=== PATIENT | male | born 1950 | race Caucasian/White ===

== ENCOUNTER 2016-12-15 11:18 | Emergency (ER) | payer MEDICARE, OTHER ==
[2016-12-15] MEDS ORDERED: LIDOCAINE 1% INJ-PF (10 MG/ML) 30 ML SDV INJ ONE (11:35)
--- NOTE | 2016-12-15 11:37 | ER Document Report ---
HPI - HPI Patient complains to provider of: cut left hand on nanda Onset: Just prior to arrival Onset/Duration: Sudden Pain Level: 3 Context: 66-year-old nondiabetic male whose tetanus is current cut his hyperthenar aspect of his right hand on a nanda in the shed when he was looking for long more parts. No bleeding at this time. Associated Symptoms: None, Slow to respond Relieved by: Denies Similar symptoms previously: No Recently seen / treated by doctor: No - ROS ROS below otherwise negative: Yes Systems Reviewed and Negative: Yes All other systems reviewed and negative - DERM Skin Color: Normal Past Medical History - General Information source: Patient - Social History Smoking Status: Unknown if Ever Smoked Frequency of alcohol use: None Drug Abuse: None Lives with: Spouse/Significant other Family History: Reviewed & Not Pertinent Patient has suicidal ideation: No Patient has homicidal ideation: No - Past Medical History Cardiac Medical History: Reports: Hx Coronary Artery Disease, Hx Peripheral Vascular Disease Renal/ Medical History: Denies: Hx Peritoneal Dialysis Past Surgical History: Reports: Hx Cardiac Catheterization, Hx Vascular Surgery - Eft leg removal of embolism Vertical Provider Document - CONSTITUTIONAL Agree With Documented VS: Yes Exam Limitations: No Limitations - INFECTION CONTROL TRAVEL OUTSIDE OF THE [place] IN LAST 30 DAYS: No - HEENT HEENT: Normocephalic - NECK Neck: Supple - RESPIRATORY O2 Sat by Pulse Oximetry: 93 - MUSCULOSKELETAL/EXTREMETIES Musculoskeletal/Extremeties: MAEW, FROM, Tender - 4 cm linear full-thickness cut hypo-thenar aspect of the left hand - NEURO Level of Consciousness: Awake, Alert, Appropriate Motor/Sensory: No Motor Deficit, No Sensory Deficit - DERM Integumentary: Laceration - see above Course - Vital Signs Vital signs: Temp Pulse Resp BP Pulse Ox 97.7 F 86 18 98/55 L 93 12/15/16 11:26 12/15/16 11:26 12/15/16 11:26 12/15/16 11:26 12/15/16 11:26 Procedures - Laceration/Wound Repair Left Hand Time completed: 12:49 Wound length (cm): 3.5 Wound's Depth, Shape: Linear, Other - into subq fat Laceration pre-procedure: Sterile PPE donned, Other - surgiscrub Anesthetic type: 1% Lidocaine Volume Anesthetic (mLs): 8 Wound explored: Clean Irrigated w/ Saline (mLs): 100 Wound Repaired With: Sutures Suture Size/Type: 4:0, Prolene Number of Sutures: 4 - vertical mattress Post-procedure wound care: Sterile dressing applied - bacitracin Complications: Yes Discharge - Discharge Clinical Impression: hand cut repair Condition: Good Disposition: HOME, SELF-CARE Instructions: Antibiotic Ointment Protection ([facility]), Laceration Care ([facility]) Additional Instructions: keep wound dry bacitracin 2 days to er any signs of infection sutures out in 12 days Please complete the patient satisfaction survey if you get one, and return it.. If you do not receive a survey, then you can go to the [facility] website, [email or web address] and place your comments about your very good care. Thank you very much. It was a pleasure being your medical provider today. Prescriptions: Oxycodone HCl/Acetaminophen [Percocet 5-325 mg Tablet] 1 - 2 tab PO ASDIR PRN # 15 tablet PRN Reason:
[2016-12-15 13:24] VITALS: BP 90/68
== END 2016-12-15 13:24 | disposition home or self-care (01) ==
LOC: ER 11:18
PROC: 0HQGXZZ Repair Left Hand Skin, External Approach (ICD-10-PCS; principal; 2016-12-15)
DX: S61.412A Laceration without foreign body of left hand, initial encounter (principal); W45.8XXA Other foreign body or object entering through skin, initial encounter; Y93.89 Activity, other specified; Y92.89 Other specified places as the place of occurrence of the external cause; I25.10 Atherosclerotic heart disease of native coronary artery without angina pectoris
CPT/HCPCS: 99282; 12002; J3490

== ENCOUNTER 2016-12-31 11:11 | Inpatient (IN) | payer MEDICARE, OTHER ==
[2016-12-31] MEDS ORDERED: ETOMIDATE INJ/PF 20 MG/10 ML SDV IV ONE ×2 (11:26→11:39)
[2016-12-31] MEDS ORDERED: SUCCINYLCHOLINE CHLORIDE INJ 200 MG/10 ML VIAL IV ONE (11:39)
--- NOTE | 2016-12-31 11:41 | ER Document Report ---
ED General - General Stated Complaint: ALTERED MENTAL STATUS Time Seen by Provider: 12/31/16 11:16 Mode of Arrival: Ambulatory Information source: Patient Notes: 66-year-old male who had recent femoral surgery presents with family with concerns of drowsiness weakness. Patient found to be febrile hypotensive by EMS TRAVEL OUTSIDE OF THE [place] IN LAST 30 DAYS: No - HPI Onset: Just prior to arrival Onset/Duration: Sudden Quality of pain: No pain Severity: Moderate Pain Level: Denies Associated symptoms: Fever, Weakness Exacerbated by: Denies Relieved by: Denies Similar symptoms previously: No Recently seen / treated by doctor: Yes - Related Data Allergies/Adverse Reactions: iodine Allergy (Verified 12/15/16 11:25) Past Medical History - Social History Smoking Status: Never Smoker Cigarette use (# per day): No Chew tobacco use (# tins/day): No Smoking Education Provided: No Family History: Reviewed & Not Pertinent - Past Medical History Cardiac Medical History: Reports: Hx Coronary Artery Disease, Hx Peripheral Vascular Disease Renal/ Medical History: Denies: Hx Peritoneal Dialysis Past Surgical History: Reports: Hx Cardiac Catheterization, Hx Vascular Surgery - Eft leg removal of embolism Review of Systems - Review of Systems Notes: PHYSICAL EXAMINATION: GENERAL: Very ill-appearing male pale diaphoretic hypoxic hypotensive HEAD: Atraumatic, normocephalic. EYES: Pupils equal round and reactive to light, extraocular movements intact, sclera anicteric, conjunctiva are normal. ENT: Nares patent, oropharynx clear without exudates. Moist mucous membranes. NECK: Normal range of motion, supple without lymphadenopathy LUNGS: Coarse wheezing all throughout HEART: Regular rate and rhythm without murmurs ABDOMEN: Soft, nontender, nondistended abdomen. No guarding, no rebound. No masses appreciated. Musculoskeletal: Normal range of motion, no pitting or edema. No cyanosis. NEUROLOGICAL: GCS 7 PSYCH: Flat SKIN: Femoral incision noted Physical Exam - Vital signs Vitals: Pulse Ox 97 12/31/16 12:41 Course - Re-evaluation Re-evalutation: 12/31/16 11:40 Patient on arrival is febrile hypotensive and hypoxic, O2 sats 60% on room air 12/31/16 11:54 Concern for pneumonia versus pulmonary emboli, CTA pending patient was immediately intubated Due to respiratory failure 12/31/16 12:24 Patient is noted to be hyperkalemic acute renal failure, I am unable to perform a CTA due to kidney function 12/31/16 13:24 Nuclear medicine ventilation/perfusion scan has been ordered. 12/31/16 13:25 Will be admitted to the ICU - Vital Signs Vital signs: Temp Pulse Resp BP Pulse Ox 97 12/31/16 12:41 - Laboratory Result Diagrams: 12/31/16 11:35 12/31/16 11:35 Laboratory results interpreted by me: 12/31/16 12/31/16 12/31/16 11:35 11:35 11:35 WBC 17.0 H RBC 3.60 L Hgb 10.7 L Hct 33.7 L MCHC 31.6 L RDW 16.7 H Seg Neutrophils % 83.2 H Lymphocytes % 8.0 L Absolute Neutrophils 14.1 H PT 24.8 H VBG pH VBG pCO2 Sodium 135.2 L Potassium 6.1 H* BUN 27 H Creatinine 2.99 H Est GFR ( Amer) 25 L Est GFR (Non-Af Amer) 21 L 12/31/16 11:35 WBC RBC Hgb Hct MCHC RDW Seg Neutrophils % Lymphocytes % Absolute Neutrophils PT VBG pH 7.17 L* VBG pCO2 75.4 H* Sodium Potassium BUN Creatinine Est GFR ( Amer) Est GFR (Non-Af Amer) - Diagnostic Test Radiology reviewed: Image reviewed, Reports reviewed - Right middle upper lobe pneumonia - EKG Interpretation by Me EKG shows normal: Sinus rhythm, [place], Intervals, QRS Complexes Procedures - Intubation Orotracheal Time of Intubation: 11:30 Airway evaluation: Normal anatomy Mallampati Classification: Class 4 Medications: Etomidate, Succinylcholine Intubation method: Orotracheal Blade type: Tarun Blade size: 4 ETT size: 8.0 ETT secured at: Teeth ETT secured at (cm): 22 Breath Sounds after Intubation: Equal End tidal CO2 confirmed: Yes Post Intubation Xray: Yes Intubation Complications: No complications Critical Care Note - Critical Care Note Total time excluding time spent on procedures (mins): 33 Comments: minutes of critical care time spent in direct contact evaluating and reevaluating the patient, treating symptoms, reviewing labs and studies and speaking with family and consultants excluding any procedures Discharge - Discharge Clinical Impression: Respiratory failure requiring intubation, Hospital-acquired pneumonia Hypotension Qualifiers: Hypotension type: unspecified hypotension type Qualified Code(s): I95.9 - Hypotension, unspecified Fever Qualifiers: Fever type: due to other condition Qualified Code(s): R50.81 - Fever presenting with conditions classified elsewhere Sepsis Qualifiers: Sepsis type: sepsis due to unspecified organism Qualified Code(s): A41.9 - Sepsis, unspecified organism Condition: Critical Disposition: ADMITTED INPATIENT Admitting Provider: Hospitalist Unit Admitted: ICU
[2016-12-31] MEDS ORDERED: PROPOFOL 100 ML IV ONE (11:43)
[2016-12-31] MEDS: PROPOFOL 100 ML IV PRN ×3 (11:44→20:38)
[2016-12-31 11:46] LABS: ABSOLUTE BASOPHILS # (AUTO) 0.1 10^3/uL (0.0-0.2); ABSOLUTE EOSINOPHILS # (AUTO) 0.2 10^3/uL (0.0-0.6); ABSOLUTE LYMPHOCYTES (AUTO) 1.4 10^3/uL (0.5-4.7); ABSOLUTE MONOCYTES (AUTO) 1.3 10^3/uL (0.1-1.4); ABSOLUTE NEUT (AUTO) 14.1 10^3/uL (1.7-8.2); BASOPHILS % (AUTO) 0.3 % (0-2); EOSINOPHILS % (AUTO) 1.1 % (0-6); HEMATOCRIT 33.7 % (37.9-51.0); HEMOGLOBIN 10.7 g/dL (13.5-17.0); HGB HCT DIFFERENCE -1.6; MEAN CORPUSCULAR HEMOGLOBIN 29.6 pg (27.0-33.4); MEAN CORPUSCULAR HGB CONC 31.6 g/dL (32.0-36.0); MEAN CORPUSCULAR VOLUME 94 fl (80-97); MONOCYTES % (AUTO) 7.4 % (3-13); RED CELL DISTRIBUTION WIDTH 16.7 % (11.5-14.0); SEGMENTED NEUTROPHILS % (AUTO) 83.2 % (42-78); VENOUS BLOOD BASE EXCESS -2.8 mmol/L
[2016-12-31 11:54] LABS: PROTHROMBIN TIME 24.8 SEC (11.4-15.4)
[2016-12-31] MEDS ORDERED: LEVOFLOXACIN 750 MG/D5W RTU 150 ML IV ONE (11:55)
[2016-12-31] MEDS: NORMAL SALINE 1000 ML 1,000 ML IV PRN ×2 (12:00→13:09)
[2016-12-31 12:03] LABS: VENOUS BLOOD PCO2 75.4 mmHg (35-63); VENOUS BLOOD PH 7.17 (7.30-7.42)
[2016-12-31 12:08] LABS: ALANINE AMINOTRANSFERASE 32 U/L (21-72); ALBUMIN 3.8 g/dL (3.5-5.0); ALKALINE PHOSPHATASE 96 U/L (38-126); ANION GAP 10 (5-19); ASPARTATE AMINO TRANSFERASE 18 U/L (17-59); BILIRUBIN,DIRECT 0.4 mg/dL (0.0-0.4); BILIRUBIN,TOTAL 0.6 mg/dL (0.2-1.3); BLOOD UREA NITROGEN 27 mg/dL (7-20); CALCIUM 9.2 mg/dL (8.4-10.2); CARBON DIOXIDE 25 mmol/L (22-30); CHLORIDE 100 mmol/L (98-107); CREATININE RESULT 2.99 mg/dL (0.52-1.25); GLUCOSE 105 mg/dL (75-110); SODIUM 135.2 mmol/L (137-145); TOTAL PROTEIN 6.7 g/dL (6.3-8.2)
[2016-12-31 12:17] LABS: POTASSIUM 6.1 mmol/L (3.6-5.0)
[2016-12-31] MEDS ORDERED: SODIUM BICARBONATE 8.4% INJ 50 MEQ/50 ML DISP.SYRIN IV ONE (12:21)
[2016-12-31] MEDS ORDERED: ALBUTEROL SULFATE 0.083% NEB 2.5 MG/3 ML AMPUL NEB ONE (12:21)
[2016-12-31] MEDS ORDERED: INSULIN REG, HUMAN 100 UNIT/ML 3 ML VIAL (PYX) IV ONE (12:21)
[2016-12-31] MEDS ORDERED: CALCIUM GLUCONATE 1000 MG/10 ML INJ IV ONE (12:21)
[2016-12-31] MEDS ORDERED: DEXTROSE 50%-WATER 25 GM/50 ML DISP.SYRIN IV ONE (12:21)
[2016-12-31 12:25] LABS: APPEARANCE,URINE SLIGHTLY-CLOUDY; BILIRUBIN,URINE NEGATIVE (NEGATIVE); GLUCOSE, URINE NEGATIVE (NEGATIVE); KETONES,URINE NEGATIVE (NEGATIVE); LEUKOCYTE ESTERASE,URINE NEGATIVE (NEGATIVE); NITRITE,URINE NEGATIVE (NEGATIVE); PROTEIN,URINE NEGATIVE (NEGATIVE); URINE SPECIFIC GRAVITY 1.012; UROBILINOGEN,URINE NEGATIVE mg/dL (<2.0)
[2016-12-31] MEDS ORDERED: NORMAL SALINE 1000 ML 1,000 ML IV ONE (12:32)
--- NOTE | 2016-12-31 12:51 | RADIOLOGY REPORT (SQ) ---
EXAM DESCRIPTION: CHEST SINGLE VIEW COMPLETED DATE/TIME: 12/31/2016 12:41 pm REASON FOR STUDY: post intubation, fever hypoxemia COMPARISON: 04/10/2011 EXAM PARAMETERS: NUMBER OF VIEWS: One view. TECHNIQUE: Single frontal radiographic view of the chest acquired. RADIATION DOSE: NA LIMITATIONS: None. FINDINGS: LUNGS AND PLEURA: There is the appearance of a questionable infiltrate in the right mid brandon ng. There is no pleural effusion. There is no mass. MEDIASTINUM AND HILAR STRUCTURES: No masses. Contour normal. HEART AND VASCULAR STRUCTURES: Heart normal in size. Normal vasculature. BONES: No acute findings. HARDWARE: An endotracheal tube has its tip 3 cm above the ondina. An NG tube extends to the stomach. OTHER: No other significant finding. IMPRESSION: Possible right upper lobe/middle lobe pneumonia. TECHNICAL DOCUMENTATION: JOB ID: [id number]
[2016-12-31] MEDS ORDERED: VANCOMYCIN HCL INJ 1000 MG VIAL IV ONE (13:19)
[2016-12-31] MEDS ORDERED: CEFEPIME 1 GM/D5W RTU 50 ML IV ONE (13:19)
--- NOTE | 2016-12-31 13:33 | EKG REPORT ---
SEVERITY:- NORMAL ECG - SINUS RHYTHM : Confirmed by: Marcellus Murguia MD 31-Dec-2016 13:32:57
[2016-12-31] MEDS ORDERED: MIDAZOLAM HCL 100 ML IV ONE (14:24)
[2016-12-31] MEDS ORDERED: SUCCINYLCHOLINE CHLORIDE INJ 200 MG/10 ML VIAL ONE (14:36)
--- NOTE | 2016-12-31 14:43 | PDOC H&P ---
History of Present Illness History of Present Illness: BELA CALHOUN is a 66 year old male who presents to the emergency department with altered mental status. His reports a recent history of a left femoral arterial procedure which I believe was done about 2 weeks ago. Was also seen in this emergency department several days ago for a laceration to the left hand. At this morning the patient was found with altered mental status by his . Patient was brought to the emergency department where he was found to be febrile at 100.2, hypotensive at 70/40, and hypoxemic with a 69% O2 saturation. He has required intubation and mechanical ventilation. He received 3 L of IV fluids, effectively raising his blood pressure to 110/62. Chest x-ray shows right middle lobe and right upper lobe infiltrate consistent with pneumonia versus PE. Blood count is 17,000. BUN 27, creatinine 2.99, potassium 6.1. Arterial blood gases showed a pH of 7.17 and a PCO2 of 75. I am seeing the patient in the emergency department in trauma room #1, on a gurney on his way to a VQ scan. He is sedated on propofol. No family members were in attendance. Past Medical History Cardiac Medical History: Reports: Coronary Artery Disease, Peripheral Vascular Disease Pulmonary Medical History: Reports: Other - non-smoker Past Surgical History Past Surgical History: Reports: Cardiac Catheterization, Vascular Surgery - Left leg removal of embolism Social History Smoking Status: Never Smoker Family History Family History: Reviewed & Not Pertinent Parental Family History Reviewed: No - Unable to be obtained due to sedation and intubation. Children Family History Reviewed: No Sibling(s) Family History Reviewed.: No Medication/Allergy Home Medications: Oxycodone HCl/Acetaminophen [Percocet 5-325 mg Tablet] 1 - 2 tab PO ASDIR PRN # 15 tablet 12/15/16 Allergies/Adverse Reactions: iodine Allergy (Verified 12/15/16 11:25) Review of Systems ROS unobtainable: Due to endotracheal tube Physical Exam Vital Signs: Temp Pulse Resp BP Pulse Ox 97 12/31/16 12:41 Intake & Output 12/30/16 12/31/16 01/01/17 06:59 06:59 06:59 Weight 77.2 kg General appearance: PRESENT: other - sedated and on a ventilator Head exam: PRESENT: atraumatic, normocephalic Eye exam: PRESENT: other - pupils small and reactive to light Ear exam: PRESENT: normal external ear exam. ABSENT: bleeding, drainage Mouth exam: PRESENT: dry mucosa, neck supple Neck exam: ABSENT: carotid bruit, JVD, lymphadenopathy, tracheal deviation Respiratory exam: PRESENT: clear to auscultation [place], symmetrical. ABSENT: rales, rhonchi, wheezes Cardiovascular exam: PRESENT: RRR Pulses: PRESENT: other - no palpable distal pulses. Slow capillary refill. Toes all warm, pink. Vascular exam: ABSENT: normal capillary refill GI/Abdominal exam: PRESENT: soft. ABSENT: ascites, distended Rectal exam: PRESENT: deferred Gentrourinary exam: ABSENT: lesions, scrotal swelling Extremities exam: PRESENT: other - No edema. Vascular surgical scars LLE. Neurological exam: PRESENT: other - sedated on propofol.. ABSENT: alert, awake Skin exam: PRESENT: other - Healing laceration left hand. Healed vasc surgical scars LLE. Results Laboratory Results: 12/31/16 11:35 12/31/16 11:35 12/31/16 12/31/16 12/31/16 11:35 11:35 11:35 WBC 17.0 H RBC 3.60 L Hgb 10.7 L Hct 33.7 L MCV 94 MCH 29.6 MCHC 31.6 L RDW 16.7 H Plt Count 342 Seg Neutrophils % 83.2 H Lymphocytes % 8.0 L Monocytes % 7.4 Eosinophils % 1.1 Basophils % 0.3 Absolute Neutrophils 14.1 H Absolute Lymphocytes 1.4 Absolute Monocytes 1.3 Absolute Eosinophils 0.2 Absolute Basophils 0.1 VBG pH VBG pCO2 VBG HCO3 VBG Base Excess Sodium 135.2 L Potassium 6.1 H* Chloride 100 Carbon Dioxide 25 Anion Gap 10 BUN 27 H Creatinine 2.99 H Est GFR ( Amer) 25 L Est GFR (Non-Af Amer) 21 L Glucose 105 Lactic Acid 1.3 Calcium 9.2 Total Bilirubin 0.6 AST 18 ALT 32 Alkaline Phosphatase 96 Total Protein 6.7 Albumin 3.8 Urine Color Urine Appearance Urine pH Ur Specific [place] Urine Protein Urine Glucose (UA) Urine Ketones Urine Blood Urine Nitrite Ur Leukocyte Esterase Urine WBC (Auto) Urine RBC (Auto) 12/31/16 12/31/16 11:35 12:00 WBC RBC Hgb Hct MCV MCH MCHC RDW Plt Count Seg Neutrophils % Lymphocytes % Monocytes % Eosinophils % Basophils % Absolute Neutrophils Absolute Lymphocytes Absolute Monocytes Absolute Eosinophils Absolute Basophils VBG pH 7.17 L* VBG pCO2 75.4 H* VBG HCO3 27.0 VBG Base Excess -2.8 Sodium Potassium Chloride Carbon Dioxide Anion Gap BUN Creatinine Est GFR ( Amer) Est GFR (Non-Af Amer) Glucose Lactic Acid Calcium Total Bilirubin AST ALT Alkaline Phosphatase Total Protein Albumin Urine Color YELLOW Urine Appearance SLIGHTLY-CLOUDY Urine pH 5.0 Ur Specific [place] 1.012 Urine Protein NEGATIVE Urine Glucose (UA) NEGATIVE Urine Ketones NEGATIVE Urine Blood NEGATIVE Urine Nitrite NEGATIVE Ur Leukocyte Esterase NEGATIVE Urine WBC (Auto) 1 Urine RBC (Auto) 0 Impressions: Chest X-Ray 12/31/16 12:23 IMPRESSION: Possible right upper lobe/middle lobe pneumonia. Assessment & Plan - Diagnosis (1) Acute respiratory failure with hypoxia and hypercarbia Is this a current diagnosis for this admission?: YesPlan: The patient was admitted with altered mental status, signs of sepsis with pneumonia, hypotension, leukocytosis, acidosis and elevated PCO2. He has required intubation and mechanical ventilation. Pulmonary medicine is consulted for ventilator management. (2) Hospital-acquired pneumonia Is this a current diagnosis for this admission?: YesPlan: The patient has chest x-ray evidence of right middle lobe and right upper lobe infiltrates suggestive of pneumonia versus embolism. Fever and leukocytosis suggest pneumonia. PA is unable to be done because of acute renal failure. Post scan is in progress. While, he will be started on IV antibiotics, fluids, etc. (3) Sepsis Qualifiers: Sepsis type: sepsis due to unspecified organism Qualified Code(s): A41.9 - Sepsis, unspecified organism Is this a current diagnosis for this admission?: YesPlan: The patient is septic hip based on his presentation with altered mental status, hypotension, fever, and leukocytosis. Blood pressure improved with IV fluids. He has not required vasopressors. (4) ARF (acute renal failure) Qualifiers: Acute renal failure type: unspecified Qualified Code(s): N17.9 - Acute kidney failure, unspecified Is this a current diagnosis for this admission?: YesPlan: The patient has evidence of renal failure with elevated BUN and creatinine, and potassium at 6.1. Will simply monitor this with the IV fluids. Treat the hyperkalemia. Consult nephrology if the need be. (5) Hyperkalemia Is this a current diagnosis for this admission?: Yes (6) PAD (peripheral artery disease) Is this a current diagnosis for this admission?: YesPlan: He is status post a recent left femoral arterial procedure. All surgical scars have healed. There is no palpable distal pulses but the tips of all toes are warm, pink, adequately perfused. (7) CAD (coronary artery disease) Qualifiers: Coronary Disease-Associated Artery/Lesion type: [place] artery [place] vs. transplanted heart: [place] heart Associated angina: angina presence unspecified Qualified Code(s): I25.10 - Atherosclerotic heart disease of [place] coronary artery without angina pectoris Is this a current diagnosis for this admission?: YesPlan: Patient has a known history of coronary artery disease. Presence of angina is unknown. Will treat with aspirin, beta-misha and to statin medication as his clinical condition allows. - Time Time Spent: 50 to 70 Minutes Critical Time spent with patient: 35 or more minutes Medications reviewed and adjusted accordingly: Yes - Inpatient Certification Based on my medical assessment, after consideration of the patient's comorbidities, presenting symptoms, or acuity I expect that the services needed warrant INPATIENT care.: Yes Medical Necessity: Need Close Monitoring Due to Risk of Patient Decompensation, Need For Continuous Telemetry Monitoring, Other - Need for mechanical ventilation - Plan Summary Plan Summary: In summary, this is a 66-year-old man who is about 2 weeks status post a left femoral arterial procedure who is readmitted to the hospital with altered mental status. He has acute hypoxemic and hypercarbic respiratory failure, fever, hypotension, leukocytosis and evidence of acute renal failure. He will be admitted to the ICU for ventilator management, fluids, antibiotics, and all associated consultations, monitoring, diagnostics and therapeutics.
--- NOTE | 2016-12-31 15:09 | RADIOLOGY REPORT (SQ) ---
EXAM DESCRIPTION: NM LUNG VENT/PERF SCAN COMPLETED DATE/TIME: 12/31/2016 2:59 pm REASON FOR STUDY: hx dvt , hypoxemia COMPARISON: None. RADIONUCLIDE AND DOSE: 4.76 millicuries TC-99m MAA Intravenous 32.0 millicuries TC-99m DTPA Inhaled aerosol TECHNIQUE: Eight views of the lungs acquired post ventilation of DTPA aerosol. Eight matching views of the lungs acquired following injection of MAA. LIMITATIONS: None. FINDINGS: VENTILATION: There is some minimal inhomogeneity of the distribution of tracer activity. There is some pooling in the trachea and central bronchi. PERFUSION: There is some minimal inhomogeneity of the distribution of tracer activity which correlate s with the ventilation findings. No ventilation perfusion mismatches are identified. OTHER: No other significant finding. IMPRESSION: Ventilation perfusion lung scan showing no evidence for pulmonary embolic disease. TECHNICAL DOCUMENTATION: JOB ID: [id number] [id number]- All Rights Reserved
[2016-12-31] MEDS: DEXTROSE 5%-NORMAL SALINE 1,000 ML IV PRN ×2 (15:52→23:20)
[2016-12-31] MEDS ORDERED: NOREPINEPHRINE BITARTRATE INJ/PF 4 MG/4 ML SDV IV ONE (16:02)
[2016-12-31] MEDS ORDERED: DEXTROSE 5%-WATER 250 ML with NOREPINEPHRINE BITARTRATE 4 MG IV PRN ×2 (16:07)
[2016-12-31 16:52] LABS: ARTERIAL BLOOD O2 SATURATION 93.6 % (94-98)
[2016-12-31] MEDS: CEFTRIAXONE 1 GM/D5W RTU 1 GM/50 ML RTUPB IV SCH (17:55)
[2016-12-31 19:01] LABS: ARTERIAL BLOOD BASE EXCESS -3.2 mmol/L; ARTERIAL BLOOD O2 SATURATION 91.6 % (94-98)
[2016-12-31] MEDS: OXYCODONE-ACETAMINOPHEN 5-325 MG TABLET PO PRN (20:38)
--- NOTE | 2016-12-31 20:41 | PDOC CONSULTATION ---
Consultation Consult Date: 12/31/16 Attending physician:: YEVGENIY DELANEY Consult reason:: resp failure History of Present Illness Admission Date/PCP: 12/31/16 12:29 History of Present Illness: BELA CALHOUN is a 66 year old male who presents to the emergency department with altered mental status. At this morning the patient was found with altered mental status by his . Patient was brought to the emergency department where he was found to be febrile at 100.2, hypotensive at 70/40, and hypoxemic with a 69% O2 saturation. He has required intubation and mechanical ventilation. He received 3 L of IV fluids, effectively raising his blood pressure to 110/62. Chest x-ray shows right middle lobe and right upper lobe infiltrate consistent with pneumonia versus PE. Blood count is 17,000. BUN 27, creatinine 2.99, potassium 6.1. Arterial blood gases showed a pH of 7.17 .. Patient's family state patient smoked 1-1/2 packs a day for the last 52 years. 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 He admits to exposure to passive smoke as a child as well as an adult he has no pets no recent travel has not reported angina-like chest pain sleeps on 1-2 pillows rare PND no nocturnal cough frequent edema. He states that he does snore he has restless sleep nocturia 2-3 times per night. 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: Yes Medication/Allergy Home Medications: Albuterol Sulfate [Proair Respiclick] 1 puff IH Q4HP PRN 12/31/16 Amlodipine Besylate [Norvasc 5 mg Tablet] 5 mg PO DAILY 12/31/16 Aspirin [Ecotrin 81 mg EC Tablet] 81 mg PO DAILY 12/31/16 Atorvastatin Calcium [Lipitor 40 mg Tablet] 40 mg PO QHS 12/31/16 Clonazepam [Klonopin] 0.5 mg PO BIDP PRN 12/31/16 Esomeprazole Magnesium [Nexium] 40 mg PO DAILY 12/31/16 Fluoxetine HCl [Prozac 20 mg Capsule] 20 mg PO DAILY 12/31/16 Furosemide [Lasix 20 mg Tablet] 20 mg PO DAILY 12/31/16 Gabapentin [Neurontin 300 mg Capsule] 300 mg PO Q12 12/31/16 Lisinopril [Prinivil 40 mg Tablet] 40 mg PO DAILY 12/31/16 Pantoprazole Sodium [Protonix] 40 mg PO DAILY 12/31/16 Rivaroxaban [Xarelto] 20 mg PO QPM 12/31/16 Tramadol HCl [Ultram 50 mg Tablet] 50 mg PO Q6HP PRN 12/31/16 Allergies/Adverse Reactions: iodine Allergy (Verified 12/15/16 11:25) Review of Systems ROS unobtainable: Due to endotracheal tube Physical Exam Vital Signs: Temp Pulse Resp BP Pulse Ox 99.0 F 66 20 100/55 L 96 12/31/16 18:58 12/31/16 20:00 12/31/16 18:58 12/31/16 18:58 12/31/16 18:58 Intake & Output 12/30/16 12/31/16 01/01/17 06:59 06:59 06:59 Intake Total 3500 Output Total 35 Balance 3465 Weight 85 kg General appearance: PRESENT: disheveled, well-developed Head exam: PRESENT: atraumatic, normocephalic Eye exam: PRESENT: conjunctiva pale Mouth exam: PRESENT: dry mucosa, neck supple, other - ET tube in place Neck exam: ABSENT: carotid bruit, JVD, lymphadenopathy, thyromegaly Respiratory exam: PRESENT: crackles, decreased breath sounds, prolonged expiratory phas, rhonchi, symmetrical, unlabored Cardiovascular exam: PRESENT: RRR, +S1, +S2 GI/Abdominal exam: PRESENT: normal bowel sounds, soft. ABSENT: distended, guarding, mass, organolmegaly, rebound, tenderness Rectal exam: PRESENT: deferred Gentrourinary exam: PRESENT: indwelling catheter Musculoskeletal exam: PRESENT: normal inspection Skin exam: PRESENT: dry Results Laboratory Results: 12/31/16 12/31/16 16:30 18:45 Carbonic Acid 1.84 H 1.69 H HCO3/H2CO3 Ratio 13:1 14:1 ABG pH 7.22 L 7.26 L ABG pCO2 61.1 H 56.0 H ABG pO2 82.4 71.2 L ABG HCO3 24.2 24.3 ABG O2 Saturation 93.6 L 91.6 L ABG Base Excess -4.0 -3.2 FiO2 50% 50% Impressions: Chest X-Ray 12/31/16 12:23 IMPRESSION: Possible right upper lobe/middle lobe pneumonia. Lung Scan-VQ NM 12/31/16 12:23 IMPRESSION: Ventilation perfusion lung scan showing no evidence for pulmonary embolic disease. Assessment & Plan - Diagnosis (1) ARF (acute renal failure) Qualifiers: Acute renal failure type: unspecified Qualified Code(s): N17.9 - Acute kidney failure, unspecified Is this a current diagnosis for this admission?: Yes (2) Acute respiratory failure with hypoxia and hypercarbia Is this a current diagnosis for this admission?: Yes (3) PAD (peripheral artery disease) Is this a current diagnosis for this admission?: Yes (4) Respiratory failure requiring intubation Is this a current diagnosis for this admission?: YesPlan: Supportive care (5) Sepsis Qualifiers: Sepsis type: sepsis due to unspecified organism Qualified Code(s): A41.9 - Sepsis, unspecified organism Is this a current diagnosis for this admission?: YesPlan: vasopressor support volume resuscitation and empiric antibiotic therapy - Time Critical Time spent with patient: 35 or more minutes - 55 min
[2016-12-31 20:45] LABS: ARTERIAL BLOOD BASE EXCESS -2.6 mmol/L; ARTERIAL BLOOD O2 SATURATION 94.9 % (94-98)
[2016-12-31] MEDS: FAMOTIDINE INJ/PF 20 MG/2 ML SDV IV SCH (21:02)
[2016-12-31] MEDS: GUAIFENESIN 600 MG TABLET.SA PO SCH (21:03)
[2016-12-31] MEDS: MIDAZOLAM HCL 100 ML IV PRN (23:19)
[2017-01-01] MEDS: PROPOFOL 100 ML IV PRN ×5 (00:49→21:41)
[2017-01-01] MEDS: ACETAMINOPHEN 325 MG TABLET PO PRN ×2 (02:02→14:08)
[2017-01-01 04:15] LABS: ABSOLUTE BASOPHILS # (AUTO) 0.1 10^3/uL (0.0-0.2); ABSOLUTE EOSINOPHILS # (AUTO) 0.5 10^3/uL (0.0-0.6); ABSOLUTE MONOCYTES (AUTO) 1.4 10^3/uL (0.1-1.4); ABSOLUTE NEUT (AUTO) 11.1 10^3/uL (1.7-8.2); BASOPHILS % (AUTO) 0.5 % (0-2); EOSINOPHILS % (AUTO) 3.7 % (0-6); HEMOGLOBIN 9.3 g/dL (13.5-17.0); HGB HCT DIFFERENCE -1.1; LYMPHOCYTES % (AUTO) 7.4 % (13-45); MEAN CORPUSCULAR HEMOGLOBIN 29.4 pg (27.0-33.4); MEAN CORPUSCULAR HGB CONC 32.1 g/dL (32.0-36.0); MEAN CORPUSCULAR VOLUME 92 fl (80-97); RED BLOOD COUNT 3.17 10^6/uL (4.35-5.55); RED CELL DISTRIBUTION WIDTH 16.6 % (11.5-14.0); SEGMENTED NEUTROPHILS % (AUTO) 78.4 % (42-78); WHITE BLOOD COUNT 14.2 10^3/uL (4.0-10.5)
[2017-01-01 04:30] LABS: ARTERIAL BLOOD BASE EXCESS -2.3 mmol/L
[2017-01-01 04:35] LABS: ANION GAP 6 (5-19); BLOOD UREA NITROGEN 19 mg/dL (7-20); CALCIUM 8.8 mg/dL (8.4-10.2); CARBON DIOXIDE 22 mmol/L (22-30); CHLORIDE 108 mmol/L (98-107); CREATININE RESULT 1.14 mg/dL (0.52-1.25); GLUCOSE 111 mg/dL (75-110); TRIGLYCERIDES 118 mg/dL (<150)
[2017-01-01 04:56] LABS: POTASSIUM 4.9 mmol/L (3.6-5.0)
[2017-01-01] MEDS: MIDAZOLAM HCL 100 ML IV PRN ×3 (05:15→17:48)
--- NOTE | 2017-01-01 06:57 | RADIOLOGY REPORT (SQ) ---
EXAM DESCRIPTION: CHEST SINGLE VIEW COMPLETED DATE/TIME: 01/01/2017 6:03 am REASON FOR STUDY: Mechanical Ventilation COMPARISON: 12/31/2016. EXAM PARAMETERS: NUMBER OF VIEWS: One view. TECHNIQUE: Single frontal radiographic view of the chest acquired. RADIATION DOSE: NA LIMITATIONS: None. FINDINGS: LUNGS AND PLEURA: Small airspace patchiness of the lateral left mid lung field and mild in terstitial prominence. MEDIASTINUM AND HILAR STRUCTURES: No masses. Contour normal. HEART AND VASCULAR STRUCTURES: Heart normal in size. Normal vasculature. BONES: No acute findings. HARDWARE: Likely adequate endotracheal and nasogastric tubes partially imaged. OTHER: No other significant finding. IMPRESSION: Stable. TECHNICAL DOCUMENTATION: JOB ID: [id number]
[2017-01-01] MEDS: ENOXAPARIN SODIUM INJ 30 MG/0.3 ML DISP.SYRIN SUBCUT SCH (08:12)
[2017-01-01] MEDS: DEXTROSE 5%-NORMAL SALINE 1,000 ML IV PRN ×2 (08:45→16:53)
[2017-01-01] MEDS: GUAIFENESIN 600 MG TABLET.SA PO SCH (10:45)
[2017-01-01] MEDS: FAMOTIDINE INJ/PF 20 MG/2 ML SDV IV SCH ×2 (10:47→21:41)
--- NOTE | 2017-01-01 15:30 | PDOC PROGRESS REPORT ---
Subjective Progress Note for:: 01/01/17 Subjective:: BELA CALHOUN is a 66 year old male who presented on 12/31/2016 to the emergency department with altered mental status. His reports a recent history of a left femoral arterial procedure which was done 2-4 weeks ago. The patient was also seen in this emergency department several days ago for a laceration to the left hand. Patient was brought to the emergency department where he was found to be febrile at 100.2, hypotensive at 70/40, and hypoxemic with a 69% O2 saturation. He required intubation and mechanical ventilation. He received 3 L of IV fluids, effectively raising his blood pressure to 110/62. Chest x-ray shows right middle lobe and right upper lobe infiltrate consistent with pneumonia versus PE. Subsequenst VQ scan was negative for embolus. Blood count was 17,000. BUN 27, creatinine 2.99, potassium 6.1. Arterial blood gases showed a pH of 7.17 and a PCO2 of 75. I am seeing the patient in the ICU where he remains sedated with propofol and on a ventilator. He is on a vent weaning trial. Physical Exam Vital Signs: Temp Pulse Resp BP Pulse Ox 101.7 F H 85 17 125/54 L 97 01/01/17 12:00 01/01/17 14:00 01/01/17 14:00 01/01/17 14:00 01/01/17 14:00 Intake & Output 12/31/16 01/01/17 01/02/17 06:59 06:59 06:59 Intake Total 5417 Output Total 835 375 Balance 4582 -375 Weight 83.4 kg Additional comments: General appearance: PRESENT: other - sedated and on a ventilator Head exam: PRESENT: atraumatic, normocephalic Eye exam: PRESENT: other - pupils small and reactive to light Ear exam: PRESENT: normal external ear exam. ABSENT: bleeding, drainage Mouth exam: PRESENT: dry mucosa, neck supple Neck exam: ABSENT: carotid bruit, JVD, lymphadenopathy, tracheal deviation Respiratory exam: PRESENT: coarse breath sounds [place], symmetrical. ABSENT: rales , rhonchi, wheezes Cardiovascular exam: PRESENT: RRR Pulses: PRESENT: other - no palpable distal pulses. Slow capillary refill. Toes all warm, pink. Vascular exam: ABSENT: normal capillary refill GI/Abdominal exam: PRESENT: soft. ABSENT: ascites, distended Rectal exam: PRESENT: deferred Gentrourinary exam: ABSENT: lesions, scrotal swelling Extremities exam: PRESENT: other - No edema. Vascular surgical scars LLE. Neurological exam: PRESENT: other - sedated on propofol.. ABSENT: alert, awake Skin exam: PRESENT: other - Healing laceration left hand. Healed vasc surgical scars LLE. Results Laboratory Results: 01/01/17 03:35 01/01/17 03:35 12/31/16 12/31/16 12/31/16 16:30 18:45 20:30 WBC RBC Hgb Hct MCV MCH MCHC RDW Plt Count Seg Neutrophils % Lymphocytes % Monocytes % Eosinophils % Basophils % Absolute Neutrophils Absolute Lymphocytes Absolute Monocytes Absolute Eosinophils Absolute Basophils Carbonic Acid 1.84 H 1.69 H 1.17 HCO3/H2CO3 Ratio 13:1 14:1 19:1 ABG pH 7.22 L 7.26 L 7.38 ABG pCO2 61.1 H 56.0 H 38.8 ABG pO2 82.4 71.2 L 75.5 L ABG HCO3 24.2 24.3 22.3 ABG O2 Saturation 93.6 L 91.6 L 94.9 ABG Base Excess -4.0 -3.2 -2.6 FiO2 50% 50% 30% Sodium Potassium Chloride Carbon Dioxide Anion Gap BUN Creatinine Est GFR ( Amer) Est GFR (Non-Af Amer) Glucose Calcium Triglycerides 01/01/17 01/01/17 01/01/17 03:35 03:35 04:25 WBC 14.2 H RBC 3.17 L Hgb 9.3 L Hct 29.0 L MCV 92 MCH 29.4 MCHC 32.1 RDW 16.6 H Plt Count 218 Seg Neutrophils % 78.4 H Lymphocytes % 7.4 L Monocytes % 10.0 Eosinophils % 3.7 Basophils % 0.5 Absolute Neutrophils 11.1 H Absolute Lymphocytes 1.0 Absolute Monocytes 1.4 Absolute Eosinophils 0.5 Absolute Basophils 0.1 Carbonic Acid 1.01 L HCO3/H2CO3 Ratio 21:1 ABG pH 7.43 ABG pCO2 33.4 L ABG pO2 71.7 L ABG HCO3 21.5 ABG O2 Saturation 95.0 ABG Base Excess -2.3 FiO2 35% Sodium 136.0 L Potassium 4.9 D Chloride 108 H Carbon Dioxide 22 Anion Gap 6 BUN 19 Creatinine 1.14 Est GFR ( Amer) > 60 Est GFR (Non-Af Amer) > 60 Glucose 111 H Calcium 8.8 Triglycerides 118 Impressions: Lung Scan-VQ NM 12/31/16 12:23 IMPRESSION: Ventilation perfusion lung scan showing no evidence for pulmonary embolic disease. Chest X-Ray 01/01/17 06:00 IMPRESSION: Stable. Assessment & Plan - Diagnosis (1) Acute respiratory failure with hypoxia and hypercarbia Is this a current diagnosis for this admission?: YesPlan: The patient was admitted with altered mental status, signs of sepsis with pneumonia, hypotension, leukocytosis, respiratory acidosis with markedly elevated PCO2. He required intubation and mechanical ventilation. Pulmonary medicine is managing the ventilator. (2) Hospital-acquired pneumonia Is this a current diagnosis for this admission?: YesPlan: The patient has initial chest x-ray evidence of right middle lobe and right upper lobe infiltrates and is being treated for PNA. Fever and leukocytosis were present on admission. Today's CXR mentions infiltrate on the left and not the right. (3) Sepsis Qualifiers: Sepsis type: sepsis due to unspecified organism Qualified Code(s): A41.9 - Sepsis, unspecified organism Is this a current diagnosis for this admission?: YesPlan: The patient is septic based on his presentation with altered mental status, hypotension, fever, and leukocytosis. Blood pressure improved with IV fluids. He required vasopressor yet evening and overnight, but is now off the Levophed. VS are stable and he is making urine. (4) ARF (acute renal failure) Qualifiers: Acute renal failure type: unspecified Qualified Code(s): N17.9 - Acute kidney failure, unspecified Is this a current diagnosis for this admission?: YesPlan: The patient had evidence of acute renal failure on admission with elevated BUN and creatinine, and potassium at 6.1. RFT's are now essentially safia, and K is normal as well. He is making urine. (5) Hyperkalemia Is this a current diagnosis for this admission?: YesPlan: Resolved. (6) PAD (peripheral artery disease) Is this a current diagnosis for this admission?: YesPlan: He is status post a recent left femoral arterial procedure. All surgical scars have healed. There is no palpable distal pulses but the tips of all toes are warm, pink, adequately perfused. (7) CAD (coronary artery disease) Qualifiers: Coronary Disease-Associated Artery/Lesion type: [place] artery [place] vs. transplanted heart: [place] heart Associated angina: angina presence unspecified Qualified Code(s): I25.10 - Atherosclerotic heart disease of [place] coronary artery without angina pectoris Is this a current diagnosis for this admission?: YesPlan: Patient has a known history of coronary artery disease. Presence of angina is unknown. Will treat with aspirin, beta-misha and statin medications as his clinical condition allows. - Time Critical Time spent with patient: 35 or more minutes - Critical care excludes separately billable services and procedures.
[2017-01-01] MEDS: CEFTRIAXONE 1 GM/D5W RTU 1 GM/50 ML RTUPB IV SCH (18:02)
[2017-01-01] MEDS: GUAIFENESIN SYRP 200 MG/10 ML UDC NG SCH (18:03)
[2017-01-02] MEDS: DEXTROSE 5%-NORMAL SALINE 1,000 ML IV PRN ×3 (02:33→22:24)
[2017-01-02] MEDS: PROPOFOL 100 ML IV PRN ×4 (02:34→22:24)
[2017-01-02 04:47] LABS: ABSOLUTE BASOPHILS # (AUTO) 0.1 10^3/uL (0.0-0.2); ABSOLUTE EOSINOPHILS # (AUTO) 0.5 10^3/uL (0.0-0.6); ABSOLUTE LYMPHOCYTES (AUTO) 1.1 10^3/uL (0.5-4.7); ABSOLUTE MONOCYTES (AUTO) 1.3 10^3/uL (0.1-1.4); ABSOLUTE NEUT (AUTO) 9.6 10^3/uL (1.7-8.2); BASOPHILS % (AUTO) 0.7 % (0-2); EOSINOPHILS % (AUTO) 3.8 % (0-6); HEMATOCRIT 25.9 % (37.9-51.0); HEMOGLOBIN 8.6 g/dL (13.5-17.0); HGB HCT DIFFERENCE -0.1; LYMPHOCYTES % (AUTO) 8.7 % (13-45); MEAN CORPUSCULAR HEMOGLOBIN 30.3 pg (27.0-33.4); MEAN CORPUSCULAR HGB CONC 33.2 g/dL (32.0-36.0); MEAN CORPUSCULAR VOLUME 91 fl (80-97); MONOCYTES % (AUTO) 10.1 % (3-13); RED BLOOD COUNT 2.83 10^6/uL (4.35-5.55); RED CELL DISTRIBUTION WIDTH 16.2 % (11.5-14.0); SEGMENTED NEUTROPHILS % (AUTO) 76.7 % (42-78); WHITE BLOOD COUNT 12.6 10^3/uL (4.0-10.5)
[2017-01-02 04:56] LABS: ARTERIAL BLOOD BASE EXCESS -3.8 mmol/L; ARTERIAL BLOOD O2 SATURATION 95.5 % (94-98)
[2017-01-02 05:02] LABS: ANION GAP 6 (5-19); BLOOD UREA NITROGEN 11 mg/dL (7-20); CALCIUM 8.8 mg/dL (8.4-10.2); CARBON DIOXIDE 23 mmol/L (22-30); CHLORIDE 105 mmol/L (98-107); GLUCOSE 106 mg/dL (75-110); MAGNESIUM 1.4 mg/dL (1.6-2.3); PHOSPHORUS 2.9 mg/dL (2.5-4.5); POTASSIUM 4.2 mmol/L (3.6-5.0); SODIUM 134.4 mmol/L (137-145)
--- NOTE | 2017-01-02 07:34 | RADIOLOGY REPORT (SQ) ---
EXAM DESCRIPTION: CHEST SINGLE VIEW COMPLETED DATE/TIME: 01/02/2017 7:24 am REASON FOR STUDY: Mechanical Ventilation COMPARISON: 01/01/2017. EXAM PARAMETERS: NUMBER OF VIEWS: One view. TECHNIQUE: Single frontal radiographic view of the chest acquired. RADIATION DOSE: NA LIMITATIONS: None. FINDINGS: LUNGS AND PLEURA: New, small -moderate patchy airspace opacity of the left lower hemithora x. New small to moderate left basilar opacity -effusion. MEDIASTINUM AND HILAR STRUCTURES: No masses. Contour normal. HEART AND VASCULAR STRUCTURES: Heart normal in size. Normal vasculature. BONES: Chronic deformity of posterior left upper hemithoracic ribs. HARDWARE: Adequate appearing endotracheal tube. Likely adequate nasogastric tube. OTHER: No other significant finding. IMPRESSION: New/worsened moderate left lower lobar opacity -effusion. TECHNICAL DOCUMENTATION: JOB ID: [id number]
[2017-01-02] MEDS: ENOXAPARIN SODIUM INJ 30 MG/0.3 ML DISP.SYRIN SUBCUT SCH (07:45)
[2017-01-02] MEDS: MAGNESIUM SULFATE/D5W 100 ML IV SCH ×3 (08:58→12:09)
[2017-01-02] MEDS ORDERED: LEVOFLOXACIN 750 MG/D5W RTU 750 MG/150 ML RTUPB IV SCH (10:00)
[2017-01-02] MEDS: GUAIFENESIN SYRP 200 MG/10 ML UDC NG SCH ×2 (10:21→17:24)
[2017-01-02] MEDS: FAMOTIDINE INJ/PF 20 MG/2 ML SDV IV SCH ×2 (10:21→21:33)
--- NOTE | 2017-01-02 15:17 | PDOC PROGRESS REPORT ---
Subjective Progress Note for:: 01/02/17 Subjective:: BELA CALHOUN is a 66 year old male who presented on 12/31/2016 to the emergency department with altered mental status. His reports a recent history of a left femoral arterial procedure which was done 2-4 weeks ago. The patient was also seen in this emergency department several days ago for a laceration to the left hand. Patient was brought to the emergency department where he was found to be febrile at 100.2, hypotensive at 70/40, and hypoxemic with a 69% O2 saturation. He required intubation and mechanical ventilation. He received 3 L of IV fluids, effectively raising his blood pressure to 110/62. Chest x-ray shows right middle lobe and right upper lobe infiltrate consistent with pneumonia versus PE. Subsequenst VQ scan was negative for embolus. Blood count was 17,000. BUN 27, creatinine 2.99, potassium 6.1. Arterial blood gases showed a pH of 7.17 and a PCO2 of 75. I am seeing the patient in the ICU where he remains sedated, though Versed and propofol are off for a ventilator wean trial. Physical Exam Vital Signs: Temp Pulse Resp BP Pulse Ox 99.9 F 81 20 160/67 H 100 01/01/17 18:21 01/02/17 07:33 01/02/17 14:00 01/02/17 13:36 01/02/17 14:00 Intake & Output 01/01/17 01/02/17 01/03/17 06:59 06:59 06:59 Intake Total 5417 3515 Output Total 835 2525 1500 Balance 4582 990 -1500 Weight 83.4 kg 84.4 kg Additional comments: General appearance: PRESENT: other - sedated and on a ventilator Head exam: PRESENT: atraumatic, normocephalic Eye exam: PRESENT: other - pupils small and reactive to light Ear exam: PRESENT: normal external ear exam. ABSENT: bleeding, drainage Mouth exam: PRESENT: dry mucosa, neck supple Neck exam: ABSENT: carotid bruit, JVD, lymphadenopathy, tracheal deviation Respiratory exam: PRESENT: coarse breath sounds [place], symmetrical, better air movement. ABSENT: rales, rhonchi, wheezes Cardiovascular exam: PRESENT: RRR Pulses: PRESENT: other - no palpable distal pulses. Slow capillary refill. Toes all warm, pink. Vascular exam: ABSENT: normal capillary refill GI/Abdominal exam: PRESENT: soft. ABSENT: ascites, distended Rectal exam: PRESENT: deferred Gentrourinary exam: ABSENT: lesions, scrotal swelling Extremities exam: PRESENT: other - No edema. Vascular surgical scars LLE. Neurological exam: PRESENT: other - sedated on propofol.. ABSENT: alert, awake Skin exam: PRESENT: other - Healing laceration left hand. Healed vasc surgical scars LLE. Results Laboratory Results: 01/02/17 04:30 01/02/17 04:30 01/02/17 01/02/17 01/02/17 04:30 04:30 04:47 WBC 12.6 H RBC 2.83 L Hgb 8.6 L Hct 25.9 L MCV 91 MCH 30.3 MCHC 33.2 RDW 16.2 H Plt Count 247 Seg Neutrophils % 76.7 Lymphocytes % 8.7 L Monocytes % 10.1 Eosinophils % 3.8 Basophils % 0.7 Absolute Neutrophils 9.6 H Absolute Lymphocytes 1.1 Absolute Monocytes 1.3 Absolute Eosinophils 0.5 Absolute Basophils 0.1 Carbonic Acid 0.97 L HCO3/H2CO3 Ratio 20:1 ABG pH 7.42 ABG pCO2 32.1 L ABG pO2 75.3 L ABG HCO3 20.2 ABG O2 Saturation 95.5 ABG Base Excess -3.8 FiO2 30% Sodium 134.4 L Potassium 4.2 Chloride 105 Carbon Dioxide 23 Anion Gap 6 BUN 11 Creatinine 0.80 Est GFR ( Amer) > 60 Est GFR (Non-Af Amer) > 60 Glucose 106 Calcium 8.8 Phosphorus 2.9 Magnesium 1.4 L 12/31/16 18:55 Tracheal Aspirate Gram Stain - Final Impressions: Lung Scan-VQ NM 12/31/16 12:23 IMPRESSION: Ventilation perfusion lung scan showing no evidence for pulmonary embolic disease. Chest X-Ray 01/02/17 06:00 IMPRESSION: New/worsened moderate left lower lobar opacity -effusion. Assessment & Plan - Diagnosis (1) Acute respiratory failure with hypoxia and hypercarbia Is this a current diagnosis for this admission?: YesPlan: The patient was admitted with altered mental status, signs of sepsis with pneumonia, hypotension, leukocytosis, respiratory acidosis with markedly elevated PCO2. He required intubation and mechanical ventilation. Pulmonary medicine is managing the ventilator. (2) Hospital-acquired pneumonia Is this a current diagnosis for this admission?: YesPlan: The patient has initial chest x-ray evidence of right middle lobe and right upper lobe infiltrates and is being treated for PNA. Fever and leukocytosis were present on admission. Now the CXRs mention infiltrate on the left and not the right. Continue Rocephin and Levaquin. (3) Sepsis Qualifiers: Sepsis type: sepsis due to unspecified organism Qualified Code(s): A41.9 - Sepsis, unspecified organism Is this a current diagnosis for this admission?: YesPlan: The patient was septic based on his presentation with altered mental status, hypotension, fever, and leukocytosis. Blood pressure improved with IV fluids. He required vasopressor only for a few hours. VS are stable. Leukocytosis is improving. He is making urine. (4) ARF (acute renal failure) Qualifiers: Acute renal failure type: unspecified Qualified Code(s): N17.9 - Acute kidney failure, unspecified Is this a current diagnosis for this admission?: YesPlan: Resolved. (5) Hyperkalemia Is this a current diagnosis for this admission?: YesPlan: Resolved. (6) PAD (peripheral artery disease) Is this a current diagnosis for this admission?: YesPlan: He is status post a recent left femoral arterial procedure. All surgical scars have healed. There is no palpable distal pulses but the tips of all toes are warm, pink, adequately perfused. (7) CAD (coronary artery disease) Qualifiers: Coronary Disease-Associated Artery/Lesion type: [place] artery [place] vs. transplanted heart: [place] heart Associated angina: angina presence unspecified Qualified Code(s): I25.10 - Atherosclerotic heart disease of [place] coronary artery without angina pectoris Is this a current diagnosis for this admission?: YesPlan: Patient has a known history of coronary artery disease. Presence of angina is unknown. Will treat with aspirin, beta-misha and statin medications as his clinical condition allows.
[2017-01-02] MEDS: CEFTRIAXONE 1 GM/D5W RTU 1 GM/50 ML RTUPB IV SCH (17:23)
[2017-01-03] MEDS: PROPOFOL 100 ML IV PRN ×2 (01:52→05:52)
[2017-01-03 04:55] LABS: ABSOLUTE BASOPHILS # (AUTO) 0.1 10^3/uL (0.0-0.2); ABSOLUTE EOSINOPHILS # (AUTO) 0.6 10^3/uL (0.0-0.6); ABSOLUTE LYMPHOCYTES (AUTO) 1.1 10^3/uL (0.5-4.7); ABSOLUTE NEUT (AUTO) 6.7 10^3/uL (1.7-8.2); BASOPHILS % (AUTO) 0.9 % (0-2); EOSINOPHILS % (AUTO) 6.1 % (0-6); HEMATOCRIT 28.3 % (37.9-51.0); HEMOGLOBIN 9.4 g/dL (13.5-17.0); HGB HCT DIFFERENCE -0.1; MEAN CORPUSCULAR HEMOGLOBIN 30.2 pg (27.0-33.4); MEAN CORPUSCULAR HGB CONC 33.2 g/dL (32.0-36.0); MEAN CORPUSCULAR VOLUME 91 fl (80-97); MONOCYTES % (AUTO) 10.3 % (3-13); RED CELL DISTRIBUTION WIDTH 16.6 % (11.5-14.0); SEGMENTED NEUTROPHILS % (AUTO) 70.7 % (42-78); WHITE BLOOD COUNT 9.4 10^3/uL (4.0-10.5)
[2017-01-03 05:22] LABS: ANION GAP 8 (5-19); BLOOD UREA NITROGEN 7 mg/dL (7-20); CALCIUM 9.2 mg/dL (8.4-10.2); CARBON DIOXIDE 23 mmol/L (22-30); CHLORIDE 108 mmol/L (98-107); CREATININE RESULT 0.67 mg/dL (0.52-1.25); GLUCOSE 113 mg/dL (75-110); MAGNESIUM 1.6 mg/dL (1.6-2.3); PHOSPHORUS 3.5 mg/dL (2.5-4.5); SODIUM 139.4 mmol/L (137-145)
[2017-01-03 05:37] LABS: ARTERIAL BLOOD BASE EXCESS 1.4 mmol/L; ARTERIAL BLOOD O2 SATURATION 97.5 % (94-98)
--- NOTE | 2017-01-03 06:38 | RADIOLOGY REPORT (SQ) ---
EXAM DESCRIPTION: CHEST SINGLE VIEW COMPLETED DATE/TIME: 01/03/2017 6:03 am REASON FOR STUDY: Mechanical Ventilation COMPARISON: 01/02/2017. EXAM PARAMETERS: NUMBER OF VIEWS: One view. TECHNIQUE: Single frontal radiographic view of the chest acquired. RADIATION DOSE: NA LIMITATIONS: None. FINDINGS: LUNGS AND PLEURA: Small infrahilar bandlike opacity. Prominent interstitium. Clipped CP angle on the left. Obscured right costophrenic angle. MEDIASTINUM AND HILAR STRUCTURES: No masses. Contour normal. HEART AND VASCULAR STRUCTURES: Heart normal in size. Normal vasculature. BONES: No acute findings. Left rib and left clavicle deformities. HARDWARE: Adequate appearing endotracheal tube. Likely adequate nasogastric tube courses inferiorly off the image over the left upper abdominal quadrant. OTHER: No other significant finding. IMPRESSION: Small left infrahilar airspace opacity-atelectasis. Interval improvement. Lines and tu bes . TECHNICAL DOCUMENTATION: JOB ID: [id number]
[2017-01-03] MEDS: DEXTROSE 5%-NORMAL SALINE 1,000 ML IV PRN ×2 (10:18→18:47)
[2017-01-03] MEDS: FAMOTIDINE INJ/PF 20 MG/2 ML SDV IV SCH ×2 (10:20→21:49)
[2017-01-03] MEDS: LEVOFLOXACIN 750 MG/D5W RTU 750 MG/150 ML RTUPB IV SCH (10:20)
[2017-01-03] MEDS: ENOXAPARIN SODIUM INJ 40 MG/0.4 ML DISP.SYRIN SUBCUT SCH (10:27)
[2017-01-03] MEDS: GUAIFENESIN SYRP 200 MG/10 ML UDC NG SCH ×2 (10:30→17:24)
[2017-01-03] MEDS: MORPHINE SULFATE 10 MG/ML INJ IV PRN ×3 (10:46→21:49)
--- NOTE | 2017-01-03 13:24 | PDOC PROGRESS REPORT ---
Subjective Progress Note for:: 01/03/17 Subjective:: BELA CALHOUN is a 66 year old male who presented on 12/31/2016 to the emergency department with altered mental status. His reports a recent history of a left femoral arterial procedure which was done 2-4 weeks ago. The patient was also seen in this emergency department several days ago for a laceration to the left hand. Patient was brought to the emergency department where he was found to be febrile at 100.2, hypotensive at 70/40, and hypoxemic with a 69% O2 saturation. He required intubation and mechanical ventilation. He received 3 L of IV fluids, effectively raising his blood pressure to 110/62. Chest x-ray shows right middle lobe and right upper lobe infiltrate consistent with pneumonia versus PE. Subsequenst VQ scan was negative for embolus. Blood count was 17,000. BUN 27, creatinine 2.99, potassium 6.1. Arterial blood gases showed a pH of 7.17 and a PCO2 of 75. I am seeing the patient in the ICU just before a successful extubation. Physical Exam Vital Signs: Temp Pulse Resp BP Pulse Ox 98.6 F 89 29 H 175/69 H 100 01/03/17 12:00 01/03/17 12:00 01/03/17 12:00 01/03/17 12:00 01/03/17 12:00 Intake & Output 01/02/17 01/03/17 01/04/17 06:59 06:59 06:59 Intake Total 3515 3065 Output Total 2525 5900 1200 Balance 990 -2835 -1200 Weight 84.4 kg 83.3 kg Additional comments: General appearance: PRESENT: other - sedated and on a ventilator Head exam: PRESENT: atraumatic, normocephalic Eye exam: PRESENT: other - pupils small and reactive to light Ear exam: PRESENT: normal external ear exam. ABSENT: bleeding, drainage Mouth exam: PRESENT: dry mucosa, neck supple Neck exam: ABSENT: carotid bruit, JVD, lymphadenopathy, tracheal deviation Respiratory exam: PRESENT: coarse breath sounds [place], symmetrical, better air movement. ABSENT: rales, rhonchi, wheezes Cardiovascular exam: PRESENT: RRR Pulses: PRESENT: other - no palpable distal pulses. Slow capillary refill. Toes all warm, pink. Vascular exam: ABSENT: normal capillary refill GI/Abdominal exam: PRESENT: soft. ABSENT: ascites, distended Rectal exam: PRESENT: deferred Gentrourinary exam: ABSENT: lesions, scrotal swelling Extremities exam: PRESENT: other - No edema. Vascular surgical scars LLE. Neurological exam: PRESENT: ysabel alert, sedatives held for vent weaning trial Skin exam: PRESENT: other - Healing laceration left hand. Healed vasc surgical scars LLE. Results Laboratory Results: 01/03/17 04:33 01/03/17 04:33 01/03/17 01/03/17 01/03/17 04:33 04:33 05:23 WBC 9.4 RBC 3.10 L Hgb 9.4 L Hct 28.3 L MCV 91 MCH 30.2 MCHC 33.2 RDW 16.6 H Plt Count 227 Seg Neutrophils % 70.7 Lymphocytes % 12.0 L Monocytes % 10.3 Eosinophils % 6.1 H Basophils % 0.9 Absolute Neutrophils 6.7 Absolute Lymphocytes 1.1 Absolute Monocytes 1.0 Absolute Eosinophils 0.6 Absolute Basophils 0.1 Carbonic Acid 1.19 HCO3/H2CO3 Ratio 21:1 ABG pH 7.43 ABG pCO2 39.7 ABG pO2 96.6 ABG HCO3 25.8 ABG O2 Saturation 97.5 ABG Base Excess 1.4 FiO2 30% Sodium 139.4 Potassium 4.0 Chloride 108 H Carbon Dioxide 23 Anion Gap 8 BUN 7 Creatinine 0.67 Est GFR ( Amer) > 60 Est GFR (Non-Af Amer) > 60 Glucose 113 H Calcium 9.2 Phosphorus 3.5 Magnesium 1.6 12/31/16 18:55 Tracheal Aspirate Gram Stain - Final Impressions: Lung Scan-VQ NM 12/31/16 12:23 IMPRESSION: Ventilation perfusion lung scan showing no evidence for pulmonary embolic disease. Chest X-Ray 01/03/17 06:00 IMPRESSION: Small left infrahilar airspace opacity-atelectasis. Interval improvement. Lines and tubes . Assessment & Plan - Diagnosis (1) Acute respiratory failure with hypoxia and hypercarbia Is this a current diagnosis for this admission?: YesPlan: The patient was admitted with altered mental status, signs of sepsis with pneumonia, hypotension, leukocytosis, respiratory acidosis with markedly elevated PCO2. He required intubation and mechanical ventilation. Pulmonary medicine is managing the ventilator. The patient has now been successfully extubated. (2) Hospital-acquired pneumonia Is this a current diagnosis for this admission?: YesPlan: The patient has initial chest x-ray evidence of right middle lobe and right upper lobe infiltrates and is being treated for PNA. Fever and leukocytosis were present on admission. Now the CXRs mention infiltrate on the left and not the right. Continue Rocephin and Levaquin. (3) Sepsis Qualifiers: Sepsis type: sepsis due to unspecified organism Qualified Code(s): A41.9 - Sepsis, unspecified organism Is this a current diagnosis for this admission?: YesPlan: The patient was septic based on his presentation with altered mental status, hypotension, fever, and leukocytosis. Blood pressure improved with IV fluids. He required vasopressor only for a few hours. VS are stable. Leukocytosis is improving. He is making urine. Sepsis has resolved. (4) ARF (acute renal failure) Qualifiers: Acute renal failure type: unspecified Qualified Code(s): N17.9 - Acute kidney failure, unspecified Is this a current diagnosis for this admission?: YesPlan: Resolved. (5) Hyperkalemia Is this a current diagnosis for this admission?: YesPlan: Resolved. (6) PAD (peripheral artery disease) Is this a current diagnosis for this admission?: YesPlan: He is status post a recent left femoral arterial procedure. All surgical scars have healed. There are no palpable distal pulses but the tips of all toes are warm, pink, adequately perfused. (7) CAD (coronary artery disease) Qualifiers: Coronary Disease-Associated Artery/Lesion type: [place] artery [place] vs. transplanted heart: [place] heart Associated angina: angina presence unspecified Qualified Code(s): I25.10 - Atherosclerotic heart disease of [place] coronary artery without angina pectoris Is this a current diagnosis for this admission?: YesPlan: Patient has a known history of coronary artery disease. Presence of angina is unknown. Will treat with aspirin, beta-misha and statin medications as his clinical condition allows.
[2017-01-03] MEDS: ENALAPRILAT DIHYDRATE INJ/PF 1.25 MG/1 ML SDV IV PRN (15:26)
[2017-01-03] MEDS ORDERED: PHENOL/SODIUM PHENOLATE 100 SPRAY/177 ML BOTTLE PO PRN (18:09)
[2017-01-03] MEDS: CEFTRIAXONE 1 GM/D5W RTU 1 GM/50 ML RTUPB IV SCH (18:43)
[2017-01-04 04:42] LABS: ABSOLUTE BASOPHILS # (AUTO) 0.1 10^3/uL (0.0-0.2); ABSOLUTE EOSINOPHILS # (AUTO) 0.7 10^3/uL (0.0-0.6); ABSOLUTE LYMPHOCYTES (AUTO) 1.2 10^3/uL (0.5-4.7); ABSOLUTE MONOCYTES (AUTO) 0.9 10^3/uL (0.1-1.4); ABSOLUTE NEUT (AUTO) 5.7 10^3/uL (1.7-8.2); EOSINOPHILS % (AUTO) 7.8 % (0-6); HEMATOCRIT 28.5 % (37.9-51.0); HEMOGLOBIN 9.6 g/dL (13.5-17.0); HGB HCT DIFFERENCE 0.3; LYMPHOCYTES % (AUTO) 14.4 % (13-45); MEAN CORPUSCULAR HEMOGLOBIN 30.3 pg (27.0-33.4); MEAN CORPUSCULAR HGB CONC 33.7 g/dL (32.0-36.0); MEAN CORPUSCULAR VOLUME 90 fl (80-97); MONOCYTES % (AUTO) 10.4 % (3-13); RED BLOOD COUNT 3.17 10^6/uL (4.35-5.55); RED CELL DISTRIBUTION WIDTH 16.1 % (11.5-14.0); SEGMENTED NEUTROPHILS % (AUTO) 66.4 % (42-78); WHITE BLOOD COUNT 8.5 10^3/uL (4.0-10.5)
[2017-01-04 04:55] LABS: ANION GAP 10 (5-19); BLOOD UREA NITROGEN 6 mg/dL (7-20); CALCIUM 9.3 mg/dL (8.4-10.2); CARBON DIOXIDE 28 mmol/L (22-30); CHLORIDE 102 mmol/L (98-107); CREATININE RESULT 0.68 mg/dL (0.52-1.25); GLUCOSE 87 mg/dL (75-110); PHOSPHORUS 4.5 mg/dL (2.5-4.5); POTASSIUM 3.7 mmol/L (3.6-5.0); SODIUM 140.1 mmol/L (137-145); TRIGLYCERIDES 144 mg/dL (<150)
[2017-01-04 05:24] LABS: MAGNESIUM 1.2 mg/dL (1.6-2.3)
[2017-01-04] MEDS ORDERED: MAGNESIUM SULFATE/D5W 1 GM/100 ML RTUPB IV ONE (05:37)
[2017-01-04] MEDS: MAGNESIUM SULFATE/D5W 1 GM/100 ML RTUPB IV SCH ×3 (05:55→09:56)
[2017-01-04 05:58] LABS: ARTERIAL BLOOD O2 SATURATION 95.9 % (94-98)
--- NOTE | 2017-01-04 07:06 | RADIOLOGY REPORT (SQ) ---
EXAM DESCRIPTION: CHEST SINGLE VIEW COMPLETED DATE/TIME: 01/04/2017 6:49 am REASON FOR STUDY: resp failure COMPARISON: 01/03/2017 EXAM PARAMETERS: NUMBER OF VIEWS: One view. TECHNIQUE: Single frontal radiographic view of the chest acquired. RADIATION DOSE: NA LIMITATIONS: None. FINDINGS: LUNGS AND PLEURA: The previously described left infrahilar bandlike opacity appears improv ed. Remaining lung red are clear. MEDIASTINUM AND HILAR STRUCTURES: No masses. Contour normal. HEART AND VASCULAR STRUCTURES: Heart normal in size. Normal vasculature. BONES: No acute findings. HARDWARE: Endotracheal tube and NG tube have been removed since the previous study. OTHER: No other significant finding. IMPRESSION: The previously described left infrahilar bandlike opacity appears improved. Remaining l delfin red are clear. Other findings as noted above TECHNICAL DOCUMENTATION: JOB ID: [id number]
[2017-01-04] MEDS: ENOXAPARIN SODIUM INJ 40 MG/0.4 ML DISP.SYRIN SUBCUT SCH (08:06)
--- NOTE | 2017-01-04 10:28 | PDOC PROGRESS REPORT ---
Subjective Progress Note for:: 01/01/17 Subjective:: Intubated Physical Exam Vital Signs: Temp Pulse Resp BP Pulse Ox 99.5 F 79 20 123/60 99 01/01/17 08:00 01/01/17 08:00 01/01/17 08:00 01/01/17 08:00 01/01/17 08:00 Intake & Output 12/31/16 01/01/17 01/02/17 06:59 06:59 06:59 Intake Total 5417 Output Total 835 Balance 4582 Weight 83.4 kg General appearance: PRESENT: no acute distress, disheveled, obese, well- developed Head exam: PRESENT: atraumatic, normocephalic Eye exam: PRESENT: conjunctiva pale Mouth exam: PRESENT: dry mucosa, neck supple, other - ET tube in place Neck exam: ABSENT: carotid bruit, JVD, lymphadenopathy, thyromegaly Respiratory exam: PRESENT: decreased breath sounds, prolonged expiratory phas, rhonchi, symmetrical, unlabored Cardiovascular exam: PRESENT: RRR, +S1, +S2 Pulses: PRESENT: normal radial pulses GI/Abdominal exam: PRESENT: ascites Rectal exam: PRESENT: deferred Gentrourinary exam: PRESENT: indwelling catheter Musculoskeletal exam: PRESENT: normal inspection Skin exam: PRESENT: dry, warm Results Laboratory Results: 01/01/17 03:35 01/01/17 03:35 12/31/16 12/31/16 12/31/16 16:30 18:45 20:30 WBC RBC Hgb Hct MCV MCH MCHC RDW Plt Count Seg Neutrophils % Lymphocytes % Monocytes % Eosinophils % Basophils % Absolute Neutrophils Absolute Lymphocytes Absolute Monocytes Absolute Eosinophils Absolute Basophils Carbonic Acid 1.84 H 1.69 H 1.17 HCO3/H2CO3 Ratio 13:1 14:1 19:1 ABG pH 7.22 L 7.26 L 7.38 ABG pCO2 61.1 H 56.0 H 38.8 ABG pO2 82.4 71.2 L 75.5 L ABG HCO3 24.2 24.3 22.3 ABG O2 Saturation 93.6 L 91.6 L 94.9 ABG Base Excess -4.0 -3.2 -2.6 FiO2 50% 50% 30% Sodium Potassium Chloride Carbon Dioxide Anion Gap BUN Creatinine Est GFR ( Amer) Est GFR (Non-Af Amer) Glucose Calcium Triglycerides 01/01/17 01/01/17 01/01/17 03:35 03:35 04:25 WBC 14.2 H RBC 3.17 L Hgb 9.3 L Hct 29.0 L MCV 92 MCH 29.4 MCHC 32.1 RDW 16.6 H Plt Count 218 Seg Neutrophils % 78.4 H Lymphocytes % 7.4 L Monocytes % 10.0 Eosinophils % 3.7 Basophils % 0.5 Absolute Neutrophils 11.1 H Absolute Lymphocytes 1.0 Absolute Monocytes 1.4 Absolute Eosinophils 0.5 Absolute Basophils 0.1 Carbonic Acid 1.01 L HCO3/H2CO3 Ratio 21:1 ABG pH 7.43 ABG pCO2 33.4 L ABG pO2 71.7 L ABG HCO3 21.5 ABG O2 Saturation 95.0 ABG Base Excess -2.3 FiO2 35% Sodium 136.0 L Potassium 4.9 D Chloride 108 H Carbon Dioxide 22 Anion Gap 6 BUN 19 Creatinine 1.14 Est GFR ( Amer) > 60 Est GFR (Non-Af Amer) > 60 Glucose 111 H Calcium 8.8 Triglycerides 118 Impressions: Lung Scan-VQ NM 12/31/16 12:23 IMPRESSION: Ventilation perfusion lung scan showing no evidence for pulmonary embolic disease. Chest X-Ray 01/01/17 06:00 IMPRESSION: Stable. Assessment & Plan - Diagnosis (1) ARF (acute renal failure) Qualifiers: Acute renal failure type: unspecified Qualified Code(s): N17.9 - Acute kidney failure, unspecified Is this a current diagnosis for this admission?: Yes (2) Acute respiratory failure with hypoxia and hypercarbia Is this a current diagnosis for this admission?: Yes (3) PAD (peripheral artery disease) Is this a current diagnosis for this admission?: Yes (4) Respiratory failure requiring intubation Is this a current diagnosis for this admission?: Yes (5) Sepsis Qualifiers: Sepsis type: sepsis due to unspecified organism Qualified Code(s): A41.9 - Sepsis, unspecified organism Is this a current diagnosis for this admission?: Yes - Time Critical Time spent with patient: 35 or more minutes
--- NOTE | 2017-01-04 10:30 | PDOC PROGRESS REPORT ---
Subjective Progress Note for:: 01/02/17 Subjective:: Intubated Physical Exam Vital Signs: Temp Pulse Resp BP Pulse Ox 99.9 F 81 20 145/67 H 98 01/01/17 18:21 01/02/17 07:33 01/02/17 06:00 01/02/17 05:36 01/02/17 06:00 Intake & Output 01/01/17 01/02/17 01/03/17 06:59 06:59 06:59 Intake Total 5417 3515 Output Total 835 6275 225 Balance 4582 990 -225 Weight 83.4 kg 84.4 kg General appearance: PRESENT: no acute distress, disheveled, obese, well- developed Head exam: PRESENT: atraumatic, normocephalic Eye exam: PRESENT: conjunctiva pale Mouth exam: PRESENT: dry mucosa, neck supple, other - ET tube in place Neck exam: ABSENT: carotid bruit, JVD, lymphadenopathy, thyromegaly Respiratory exam: PRESENT: crackles, decreased breath sounds, prolonged expiratory phas, rhonchi, symmetrical, unlabored Cardiovascular exam: PRESENT: RRR, +S1, +S2 Pulses: PRESENT: normal radial pulses GI/Abdominal exam: PRESENT: normal bowel sounds, soft. ABSENT: distended, guarding, mass, organolmegaly, rebound, tenderness Rectal exam: PRESENT: deferred Gentrourinary exam: PRESENT: indwelling catheter Skin exam: PRESENT: dry Results Laboratory Results: 01/02/17 04:30 01/02/17 04:30 01/02/17 01/02/17 01/02/17 04:30 04:30 04:47 WBC 12.6 H RBC 2.83 L Hgb 8.6 L Hct 25.9 L MCV 91 MCH 30.3 MCHC 33.2 RDW 16.2 H Plt Count 247 Seg Neutrophils % 76.7 Lymphocytes % 8.7 L Monocytes % 10.1 Eosinophils % 3.8 Basophils % 0.7 Absolute Neutrophils 9.6 H Absolute Lymphocytes 1.1 Absolute Monocytes 1.3 Absolute Eosinophils 0.5 Absolute Basophils 0.1 Carbonic Acid 0.97 L HCO3/H2CO3 Ratio 20:1 ABG pH 7.42 ABG pCO2 32.1 L ABG pO2 75.3 L ABG HCO3 20.2 ABG O2 Saturation 95.5 ABG Base Excess -3.8 FiO2 30% Sodium 134.4 L Potassium 4.2 Chloride 105 Carbon Dioxide 23 Anion Gap 6 BUN 11 Creatinine 0.80 Est GFR ( Amer) > 60 Est GFR (Non-Af Amer) > 60 Glucose 106 Calcium 8.8 Phosphorus 2.9 Magnesium 1.4 L Impressions: Lung Scan-VQ NM 12/31/16 12:23 IMPRESSION: Ventilation perfusion lung scan showing no evidence for pulmonary embolic disease. Chest X-Ray 01/02/17 06:00 IMPRESSION: New/worsened moderate left lower lobar opacity -effusion. Assessment & Plan - Diagnosis (1) ARF (acute renal failure) Qualifiers: Acute renal failure type: unspecified Qualified Code(s): N17.9 - Acute kidney failure, unspecified Is this a current diagnosis for this admission?: YesPlan: Improving (2) Acute respiratory failure with hypoxia and hypercarbia Is this a current diagnosis for this admission?: YesPlan: FiO2, minute ventilation, respiratory rate stable (3) PAD (peripheral artery disease) Is this a current diagnosis for this admission?: Yes (4) Respiratory failure requiring intubation Is this a current diagnosis for this admission?: Yes (5) Sepsis Qualifiers: Sepsis type: sepsis due to unspecified organism Qualified Code(s): A41.9 - Sepsis, unspecified organism Is this a current diagnosis for this admission?: Yes - Time Critical Time spent with patient: 25-34 minutes
--- NOTE | 2017-01-04 10:33 | PDOC PROGRESS REPORT ---
Subjective Progress Note for:: 01/03/17 Subjective:: Intubated Physical Exam Vital Signs: Temp Pulse Resp BP Pulse Ox 97.7 F 70 21 H 174/73 H 100 01/03/17 07:54 01/03/17 07:54 01/03/17 07:54 01/03/17 07:54 01/03/17 07:54 Intake & Output 01/02/17 01/03/17 01/04/17 06:59 06:59 06:59 Intake Total 3515 3065 Output Total 2525 5900 100 Balance 990 -2835 -100 Weight 84.4 kg 83.3 kg General appearance: PRESENT: no acute distress, disheveled, obese, well- developed, well-nourished Head exam: PRESENT: normocephalic Eye exam: PRESENT: conjunctiva pale Mouth exam: PRESENT: dry mucosa, neck supple, other - ET tube in place Neck exam: ABSENT: carotid bruit, JVD, lymphadenopathy, thyromegaly Respiratory exam: PRESENT: decreased breath sounds, prolonged expiratory phas, rhonchi, unlabored Cardiovascular exam: PRESENT: RRR, +S1, +S2 Pulses: PRESENT: normal radial pulses GI/Abdominal exam: PRESENT: normal bowel sounds, soft. ABSENT: distended, guarding, mass, organolmegaly, rebound, tenderness Rectal exam: PRESENT: deferred Gentrourinary exam: PRESENT: indwelling catheter Skin exam: PRESENT: dry Results Laboratory Results: 01/03/17 04:33 01/03/17 04:33 01/03/17 01/03/17 01/03/17 04:33 04:33 05:23 WBC 9.4 RBC 3.10 L Hgb 9.4 L Hct 28.3 L MCV 91 MCH 30.2 MCHC 33.2 RDW 16.6 H Plt Count 227 Seg Neutrophils % 70.7 Lymphocytes % 12.0 L Monocytes % 10.3 Eosinophils % 6.1 H Basophils % 0.9 Absolute Neutrophils 6.7 Absolute Lymphocytes 1.1 Absolute Monocytes 1.0 Absolute Eosinophils 0.6 Absolute Basophils 0.1 Carbonic Acid 1.19 HCO3/H2CO3 Ratio 21:1 ABG pH 7.43 ABG pCO2 39.7 ABG pO2 96.6 ABG HCO3 25.8 ABG O2 Saturation 97.5 ABG Base Excess 1.4 FiO2 30% Sodium 139.4 Potassium 4.0 Chloride 108 H Carbon Dioxide 23 Anion Gap 8 BUN 7 Creatinine 0.67 Est GFR ( Amer) > 60 Est GFR (Non-Af Amer) > 60 Glucose 113 H Calcium 9.2 Phosphorus 3.5 Magnesium 1.6 12/31/16 18:55 Tracheal Aspirate Gram Stain - Final Impressions: Lung Scan-VQ NM 12/31/16 12:23 IMPRESSION: Ventilation perfusion lung scan showing no evidence for pulmonary embolic disease. Chest X-Ray 01/03/17 06:00 IMPRESSION: Small left infrahilar airspace opacity-atelectasis. Interval improvement. Lines and tubes . Assessment & Plan - Diagnosis (1) ARF (acute renal failure) Qualifiers: Acute renal failure type: unspecified Qualified Code(s): N17.9 - Acute kidney failure, unspecified Is this a current diagnosis for this admission?: YesPlan: Improving (2) Acute respiratory failure with hypoxia and hypercarbia Is this a current diagnosis for this admission?: YesPlan: Improving (3) PAD (peripheral artery disease) Is this a current diagnosis for this admission?: Yes (4) Respiratory failure requiring intubation Is this a current diagnosis for this admission?: YesPlan: Minute volume, respiratory rate, FiO2, airway pressures, mental status all suggest successful extubation (5) Sepsis Qualifiers: Sepsis type: sepsis due to unspecified organism Qualified Code(s): A41.9 - Sepsis, unspecified organism Is this a current diagnosis for this admission?: No - Time Critical Time spent with patient: 35 or more minutes - 55 minutes extubation
--- NOTE | 2017-01-04 10:36 | PDOC PROGRESS REPORT ---
Subjective Progress Note for:: 01/04/17 Subjective:: Awake alert and oriented Physical Exam Vital Signs: Temp Pulse Resp BP Pulse Ox 98.2 F 110 H 17 175/77 H 95 01/04/17 03:53 01/04/17 03:53 01/04/17 06:00 01/04/17 05:52 01/04/17 06:00 Intake & Output 01/03/17 01/04/17 01/05/17 06:59 06:59 06:59 Intake Total 3065 2626 Output Total 5904 9280 Balance -4145 -2628 Weight 83.3 kg 79.5 kg General appearance: PRESENT: no acute distress, cooperative, disheveled, obese, well-developed Head exam: PRESENT: atraumatic, normocephalic Eye exam: PRESENT: conjunctiva pale, EOMI Mouth exam: PRESENT: dry mucosa, neck supple, tongue midline Neck exam: ABSENT: carotid bruit, JVD, lymphadenopathy, thyromegaly Respiratory exam: PRESENT: decreased breath sounds, prolonged expiratory phas, unlabored Cardiovascular exam: PRESENT: RRR, +S1, +S2 Pulses: PRESENT: normal radial pulses GI/Abdominal exam: PRESENT: normal bowel sounds, soft. ABSENT: distended, guarding, mass, organolmegaly, rebound, tenderness Rectal exam: PRESENT: deferred Gentrourinary exam: PRESENT: indwelling catheter Neurological exam: PRESENT: alert, awake Skin exam: PRESENT: dry Results Laboratory Results: 01/04/17 04:19 01/04/17 04:19 01/04/17 01/04/17 01/04/17 04:19 04:19 05:30 WBC 8.5 RBC 3.17 L Hgb 9.6 L Hct 28.5 L MCV 90 MCH 30.3 MCHC 33.7 RDW 16.1 H Plt Count 284 Seg Neutrophils % 66.4 Lymphocytes % 14.4 Monocytes % 10.4 Eosinophils % 7.8 H Basophils % 1.0 Absolute Neutrophils 5.7 Absolute Lymphocytes 1.2 Absolute Monocytes 0.9 Absolute Eosinophils 0.7 H Absolute Basophils 0.1 Carbonic Acid 1.38 H HCO3/H2CO3 Ratio 21:1 ABG pH 7.42 ABG pCO2 45.8 H ABG pO2 79.4 L ABG HCO3 29.0 H ABG O2 Saturation 95.9 ABG Base Excess 4.0 FiO2 3 LITERS Sodium 140.1 Potassium 3.7 Chloride 102 Carbon Dioxide 28 Anion Gap 10 BUN 6 L Creatinine 0.68 Est GFR ( Amer) > 60 Est GFR (Non-Af Amer) > 60 Glucose 87 Calcium 9.3 Phosphorus 4.5 Magnesium 1.2 L* Triglycerides 144 12/31/16 18:55 Tracheal Aspirate Gram Stain - Final 12/31/16 18:55 Tracheal Aspirate Sputum Culture - Final Klebsiella Oxytoca Citrobacter Freundii Normal [place] Impressions: Lung Scan-VQ NM 12/31/16 12:23 IMPRESSION: Ventilation perfusion lung scan showing no evidence for pulmonary embolic disease. Chest X-Ray 01/04/17 06:00 IMPRESSION: The previously described left infrahilar bandlike opacity appears improved. Remaining lung red are clear. Other findings as noted above Assessment & Plan - Diagnosis (1) ARF (acute renal failure) Qualifiers: Acute renal failure type: unspecified Qualified Code(s): N17.9 - Acute kidney failure, unspecified Is this a current diagnosis for this admission?: YesPlan: Improving (2) Acute respiratory failure with hypoxia and hypercarbia Is this a current diagnosis for this admission?: No (3) PAD (peripheral artery disease) Is this a current diagnosis for this admission?: Yes (4) Respiratory failure requiring intubation Is this a current diagnosis for this admission?: YesPlan: 24 hours status post extubation doing well (5) Sepsis Qualifiers: Sepsis type: sepsis due to unspecified organism Qualified Code(s): A41.9 - Sepsis, unspecified organism Is this a current diagnosis for this admission?: Yes - Time Critical Time spent with patient: 35 or more minutes
[2017-01-04] MEDS: LEVOFLOXACIN 750 MG/D5W RTU 750 MG/150 ML RTUPB IV SCH (10:45)
[2017-01-04] MEDS: FAMOTIDINE INJ/PF 20 MG/2 ML SDV IV SCH ×2 (10:46→21:42)
[2017-01-04] MEDS: GUAIFENESIN SYRP 200 MG/10 ML UDC NG SCH (10:46)
--- NOTE | 2017-01-04 11:35 | PDOC PROGRESS REPORT ---
Subjective Progress Note for:: 01/04/17 Subjective:: BELA CALHOUN is a 66 year old male who presented on 12/31/2016 to the emergency department with altered mental status. His reports a recent history of a left femoral arterial procedure which was done 2-4 weeks ago. The patient was also seen in this emergency department several days ago for a laceration to the left hand. Patient was brought to the emergency department where he was found to be febrile at 100.2, hypotensive at 70/40, and hypoxemic with a 69% O2 saturation. He required intubation and mechanical ventilation. He received 3 L of IV fluids, effectively raising his blood pressure to 110/62. Chest x-ray shows right middle lobe and right upper lobe infiltrate consistent with pneumonia versus PE. Subsequenst VQ scan was negative for embolus. Blood count was 17,000. BUN 27, creatinine 2.99, potassium 6.1. Arterial blood gases showed a pH of 7.17 and a PCO2 of 75. He was successfully extubated yesterday and is doing well. We are planning a transfer out of the ICU to the medical floor. Physical Exam Vital Signs: Temp Pulse Resp BP Pulse Ox 98.2 F 78 24 H 171/79 H 97 01/04/17 03:53 01/04/17 08:00 01/04/17 10:00 01/04/17 09:54 01/04/17 10:00 Intake & Output 01/03/17 01/04/17 01/05/17 06:59 06:59 06:59 Intake Total 3065 2626 200 Output Total 5900 5250 675 Balance -2835 -2624 -475 Weight 83.3 kg 79.5 kg Additional comments: General appearance: PRESENT: awake, alert, on nasal cannula Head exam: PRESENT: atraumatic, normocephalic Eye exam: PRESENT: other - pupils small and reactive to light Ear exam: PRESENT: normal external ear exam. ABSENT: bleeding, drainage Mouth exam: PRESENT: dry mucosa, neck supple Neck exam: ABSENT: carotid bruit, JVD, lymphadenopathy, tracheal deviation Respiratory exam: PRESENT: coarse breath sounds kelton, symmetrical, better air movement. ABSENT: rales, rhonchi, wheezes Cardiovascular exam: PRESENT: RRR Pulses: PRESENT: other - no palpable distal pulses. Slow capillary refill. Toes all warm, pink. Vascular exam: ABSENT: normal capillary refill GI/Abdominal exam: PRESENT: soft. ABSENT: ascites, distended Rectal exam: PRESENT: deferred Gentrourinary exam: ABSENT: lesions, scrotal swelling Extremities exam: PRESENT: other - No edema. Vascular surgical scars LLE. Neurological exam: PRESENT: alert, moves all fours Skin exam: PRESENT: other - Healing laceration left hand. Healed vasc surgical scars LLE. Results Laboratory Results: 01/04/17 04:19 01/04/17 04:19 01/04/17 01/04/17 01/04/17 04:19 04:19 05:30 WBC 8.5 RBC 3.17 L Hgb 9.6 L Hct 28.5 L MCV 90 MCH 30.3 MCHC 33.7 RDW 16.1 H Plt Count 284 Seg Neutrophils % 66.4 Lymphocytes % 14.4 Monocytes % 10.4 Eosinophils % 7.8 H Basophils % 1.0 Absolute Neutrophils 5.7 Absolute Lymphocytes 1.2 Absolute Monocytes 0.9 Absolute Eosinophils 0.7 H Absolute Basophils 0.1 Carbonic Acid 1.38 H HCO3/H2CO3 Ratio 21:1 ABG pH 7.42 ABG pCO2 45.8 H ABG pO2 79.4 L ABG HCO3 29.0 H ABG O2 Saturation 95.9 ABG Base Excess 4.0 FiO2 3 LITERS Sodium 140.1 Potassium 3.7 Chloride 102 Carbon Dioxide 28 Anion Gap 10 BUN 6 L Creatinine 0.68 Est GFR ( Amer) > 60 Est GFR (Non-Af Amer) > 60 Glucose 87 Calcium 9.3 Phosphorus 4.5 Magnesium 1.2 L* Triglycerides 144 12/31/16 18:55 Tracheal Aspirate Gram Stain - Final 12/31/16 18:55 Tracheal Aspirate Sputum Culture - Final Klebsiella Oxytoca Citrobacter Freundii Normal Jessenia Impressions: Lung Scan-VQ NM 12/31/16 12:23 IMPRESSION: Ventilation perfusion lung scan showing no evidence for pulmonary embolic disease. Chest X-Ray 01/04/17 06:00 IMPRESSION: The previously described left infrahilar bandlike opacity appears improved. Remaining lung red are clear. Other findings as noted above Assessment & Plan - Diagnosis (1) Acute respiratory failure with hypoxia and hypercarbia Is this a current diagnosis for this admission?: YesPlan: The patient was admitted with altered mental status, signs of sepsis with pneumonia, hypotension, leukocytosis, respiratory acidosis with markedly elevated PCO2. He required intubation and mechanical ventilation. Pulmonary medicine managed the ventilator to a successful extubation 01/03. Now stable on nasal cannula. (2) Hospital-acquired pneumonia Is this a current diagnosis for this admission?: YesPlan: The patient has initial chest x-ray evidence of right middle lobe and right upper lobe infiltrates and is being treated for PNA. Fever and leukocytosis were present on admission. Now the CXRs mention infiltrate on the left and not the right, and improving. Continue Rocephin and Levaquin. Switch to oral antibiotic soon. (3) Sepsis Qualifiers: Sepsis type: sepsis due to unspecified organism Qualified Code(s): A41.9 - Sepsis, unspecified organism Is this a current diagnosis for this admission?: YesPlan: Sepsis has resolved. (4) ARF (acute renal failure) Qualifiers: Acute renal failure type: unspecified Qualified Code(s): N17.9 - Acute kidney failure, unspecified Is this a current diagnosis for this admission?: YesPlan: Resolved. (5) Hyperkalemia Is this a current diagnosis for this admission?: YesPlan: Resolved. (6) PAD (peripheral artery disease) Is this a current diagnosis for this admission?: YesPlan: He is status post a recent left femoral arterial procedure. All surgical scars have healed. There are no palpable distal pulses but the tips of all toes are warm, pink, adequately perfused. (7) CAD (coronary artery disease) Qualifiers: Coronary Disease-Associated Artery/Lesion type: [place] artery [place] vs. transplanted heart: [place] heart Associated angina: angina presence unspecified Qualified Code(s): I25.10 - Atherosclerotic heart disease of [place] coronary artery without angina pectoris Is this a current diagnosis for this admission?: YesPlan: Patient has a known history of coronary artery disease. Presence of angina is unknown. Will treat with aspirin, beta-misha and statin medications as his clinical condition allows.
[2017-01-04] MEDS ORDERED: LISINOPRIL 10 MG TABLET PO ONE (12:00)
[2017-01-04] MEDS: DEXTROSE 5%-NORMAL SALINE 1,000 ML IV PRN (15:30)
[2017-01-04] MEDS: CEFTRIAXONE 1 GM/D5W RTU 1 GM/50 ML RTUPB IV SCH (17:20)
[2017-01-04] MEDS: GUAIFENESIN SYRP 200 MG/10 ML UDC PO SCH (17:20)
[2017-01-04] MEDS: OXYCODONE-ACETAMINOPHEN 5-325 MG TABLET PO PRN ×2 (17:26→21:42)
[2017-01-04] MEDS: ENALAPRILAT DIHYDRATE INJ/PF 1.25 MG/1 ML SDV IV PRN (23:35)
[2017-01-05 03:59] LABS: ABSOLUTE BASOPHILS # (AUTO) 0.1 10^3/uL (0.0-0.2); ABSOLUTE EOSINOPHILS # (AUTO) 0.5 10^3/uL (0.0-0.6); ABSOLUTE LYMPHOCYTES (AUTO) 1.2 10^3/uL (0.5-4.7); ABSOLUTE NEUT (AUTO) 5.5 10^3/uL (1.7-8.2); EOSINOPHILS % (AUTO) 6.5 % (0-6); HEMATOCRIT 31.1 % (37.9-51.0); HEMOGLOBIN 10.4 g/dL (13.5-17.0); HGB HCT DIFFERENCE 0.1; LYMPHOCYTES % (AUTO) 14.4 % (13-45); MEAN CORPUSCULAR HEMOGLOBIN 30.2 pg (27.0-33.4); MEAN CORPUSCULAR HGB CONC 33.5 g/dL (32.0-36.0); MEAN CORPUSCULAR VOLUME 90 fl (80-97); MONOCYTES % (AUTO) 11.7 % (3-13); RED BLOOD COUNT 3.46 10^6/uL (4.35-5.55); RED CELL DISTRIBUTION WIDTH 16.4 % (11.5-14.0); SEGMENTED NEUTROPHILS % (AUTO) 66.4 % (42-78); WHITE BLOOD COUNT 8.3 10^3/uL (4.0-10.5)
[2017-01-05 04:21] LABS: ANION GAP 7 (5-19); BLOOD UREA NITROGEN 7 mg/dL (7-20); CALCIUM 9.3 mg/dL (8.4-10.2); CARBON DIOXIDE 28 mmol/L (22-30); CHLORIDE 103 mmol/L (98-107); CREATININE RESULT 0.69 mg/dL (0.52-1.25); GLUCOSE 106 mg/dL (75-110); MAGNESIUM 1.6 mg/dL (1.6-2.3); PHOSPHORUS 4.1 mg/dL (2.5-4.5); POTASSIUM 3.5 mmol/L (3.6-5.0); SODIUM 138.4 mmol/L (137-145)
[2017-01-05] MEDS: ENALAPRILAT DIHYDRATE INJ/PF 1.25 MG/1 ML SDV IV PRN ×2 (06:01→12:54)
[2017-01-05] MEDS: OXYCODONE-ACETAMINOPHEN 5-325 MG TABLET PO PRN (06:01)
--- NOTE | 2017-01-05 08:14 | RADIOLOGY REPORT (SQ) ---
EXAM DESCRIPTION: CHEST SINGLE VIEW COMPLETED DATE/TIME: 01/05/2017 7:58 am REASON FOR STUDY: resp fail COMPARISON: 01/04/2017 and 01/03/2015. EXAM PARAMETERS: NUMBER OF VIEWS: One view. TECHNIQUE: Single frontal radiographic view of the chest acquired. RADIATION DOSE: NA LIMITATIONS: None. FINDINGS: LUNGS AND PLEURA: Continued improved aeration. No infiltrates, masses or pneumothorax. No pleural effusion. MEDIASTINUM AND HILAR STRUCTURES: No masses. Contour normal. HEART AND VASCULAR STRUCTURES: Heart normal in size. Normal vasculature. BONES: No acute findings. HARDWARE: None in the chest. OTHER: No other significant finding. IMPRESSION: IMPROVED AERATION. NO ACUTE RADIOGRAPHIC FINDING IN THE CHEST. TECHNICAL DOCUMENTATION: JOB ID: [id number]
[2017-01-05] MEDS: ENOXAPARIN SODIUM INJ 40 MG/0.4 ML DISP.SYRIN SUBCUT SCH (08:25)
[2017-01-05] MEDS ORDERED: LISINOPRIL 10 MG TABLET PO SCH ×2 (10:00)
[2017-01-05 10:10] LABS: ARTERIAL BLOOD O2 SATURATION 95.4 % (94-98)
[2017-01-05] MEDS: FAMOTIDINE INJ/PF 20 MG/2 ML SDV IV SCH (10:10)
[2017-01-05] MEDS: GUAIFENESIN SYRP 200 MG/10 ML UDC PO SCH (10:10)
[2017-01-05] MEDS ORDERED: CIPROFLOXACIN HCL 750 MG TABLET PO ONE (11:00)
--- NOTE | 2017-01-05 14:07 | PDOC DISCHARGE SUMMARY ---
General - Admit/Disc Date/PCP Admission Date/Primary Care Provider: 12/31/16 13:29 Discharge Date: 01/05/17 - Discharge Diagnosis (1) Acute respiratory failure with hypoxia and hypercarbia Is this a current diagnosis for this admission?: YesSummary: The patient has a history of a left femoral arterial procedure that was done 2- 4 weeks prior to this admission. The patient presented to the emergency department on 12/31/2016 with altered mental status. He was found to be febrile at 100.2, hypotensive at 70/40, and hypoxemic with a 69% O2 saturation. He required intubation and mechanical ventilation. He received 3 L of IV fluids, effectively raising his blood pressure to 110/62. Chest x-ray shows right middle lobe and right upper lobe infiltrate consistent with pneumonia versus PE. Subsequenst VQ scan was negative for embolus. Blood count was 17,000. BUN 27, creatinine 2.99, potassium 6.1. Arterial blood gases showed a pH of 7.17 and a PCO2 of 75. He required intubation and mechanical ventilation. He received 3 L of IV fluids , effectively raising his blood pressure to 110/62. He was treated with antibiotics. He rapidly defervesced. He became afebrile, the white blood count normalized, and his renal function tests normalized. He was able to be quickly weaned and liberated from the ventilator. He was transferred to the regular medical floor where he quickly resumed eating drinking and ambulating without difficulty. Sputum culture of 12/31/2016 grew 2 organisms, Klebsiella oxytoca and Citrobacter freundii, both sensitive to Cipro. Intravenous antibiotics were discontinued and Cipro orally was started. The patient will be discharged home to complete 7 more days of Cipro therapy. He will follow-up with his primary care physician within 1-2 weeks. (2) Hospital-acquired pneumonia Is this a current diagnosis for this admission?: Yes (3) Sepsis Is this a current diagnosis for this admission?: YesSummary: As above, sepsis syndrome rapidly defervesced. (4) ARF (acute renal failure) Is this a current diagnosis for this admission?: YesSummary: The acute renal failure of admission rapidly normalized. (5) Hyperkalemia Is this a current diagnosis for this admission?: YesSummary: The hyperkalemia on admission rapidly corrected. (6) PAD (peripheral artery disease) Is this a current diagnosis for this admission?: YesSummary: He is status post a recent left femoral arterial procedure. All wounds have healed. There are no vascular complications during this admission. (7) CAD (coronary artery disease) Is this a current diagnosis for this admission?: YesSummary: There were no cardiac issues during this admission. - Additional Information Resuscitation Status: Full Code Discharge Diet: Regular Discharge Activity: Activity As Tolerated Home Medications: Albuterol Sulfate [Proair Respiclick] 1 puff IH Q4HP PRN 12/31/16 Amlodipine Besylate [Norvasc 5 mg Tablet] 5 mg PO DAILY 12/31/16 Aspirin [Ecotrin 81 mg EC Tablet] 81 mg PO DAILY 12/31/16 Atorvastatin Calcium [Lipitor 40 mg Tablet] 40 mg PO QHS 12/31/16 Clonazepam [Klonopin] 0.5 mg PO BIDP PRN 12/31/16 Esomeprazole Magnesium [Nexium] 40 mg PO DAILY 12/31/16 Fluoxetine HCl [Prozac 20 mg Capsule] 20 mg PO DAILY 12/31/16 Furosemide [Lasix 20 mg Tablet] 20 mg PO DAILY 12/31/16 Gabapentin [Neurontin 300 mg Capsule] 300 mg PO Q12 12/31/16 Lisinopril [Prinivil 40 mg Tablet] 40 mg PO DAILY 12/31/16 Pantoprazole Sodium [Protonix] 40 mg PO DAILY 12/31/16 Rivaroxaban [Xarelto] 20 mg PO QPM 12/31/16 Tramadol HCl [Ultram 50 mg Tablet] 50 mg PO Q6HP PRN 12/31/16 Ciprofloxacin HCl [Cipro 750 mg Tablet] 750 mg PO Q12 #14 tablet 01/05/17 Oxycodone HCl/Acetaminophen [Percocet 5-325 mg Tablet] 1 tab PO Q4HP PRN #0 tablet 01/05/17 History of Present Illness History of Present Illness: The patient has a history of a left femoral arterial procedure that was done 2- 4 weeks prior to this admission. The patient presented to the emergency department on 12/31/2016 with altered mental status. He was found to be febrile at 100.2, hypotensive at 70/40, and hypoxemic with a 69% O2 saturation. He required intubation and mechanical ventilation. He received 3 L of IV fluids, effectively raising his blood pressure to 110/62. Chest x-ray shows right middle lobe and right upper lobe infiltrate consistent with pneumonia versus PE. Subsequenst VQ scan was negative for embolus. Blood count was 17,000. BUN 27, creatinine 2.99, potassium 6.1. Arterial blood gases showed a pH of 7.17 and a PCO2 of 75. Hospital Course Hospital Course: He required intubation and mechanical ventilation. He received 3 L of IV fluids , effectively raising his blood pressure to 110/62. He was treated with antibiotics. He rapidly defervesced. He became afebrile, the white blood count normalized, and his renal function tests normalized. He was able to be quickly weaned and liberated from the ventilator. He was transferred to the regular medical floor where he quickly resumed eating drinking and ambulating without difficulty. Sputum culture of 12/31/2016 grew 2 organisms, Klebsiella oxytoca and Citrobacter freundii, both sensitive to Cipro. Intravenous antibiotics were discontinued and Cipro orally was started. The patient will be discharged home to complete 7 more days of Cipro therapy. He will follow-up with his primary care physician within 1-2 weeks. Physical Exam Vital Signs: Temp Pulse Resp BP Pulse Ox 97.4 F 86 18 180/73 H 98 01/05/17 11:12 01/05/17 11:12 01/05/17 11:12 01/05/17 11:12 01/05/17 11:12 Intake & Output 01/04/17 01/05/17 01/06/17 06:59 06:59 06:59 Intake Total 2626 4203 Output Total 5250 3400 Balance -2624 803 Weight 79.5 kg 83 kg Additional comments: General appearance: PRESENT: awake, alert, ambulatory Head exam: PRESENT: atraumatic, normocephalic Eye exam: PRESENT: other - pupils small and reactive to light Ear exam: PRESENT: normal external ear exam. ABSENT: bleeding, drainage Mouth exam: PRESENT: dry mucosa, neck supple Neck exam: ABSENT: carotid bruit, JVD, lymphadenopathy, tracheal deviation Respiratory exam: PRESENT: coarse breath sounds kelton, symmetrical, good air movement. ABSENT: rales, rhonchi, wheezes Cardiovascular exam: PRESENT: RRR Pulses: PRESENT: other - no palpable distal pulses. Slow capillary refill. Toes all warm, pink. Vascular exam: ABSENT: normal capillary refill GI/Abdominal exam: PRESENT: soft. ABSENT: ascites, distended Rectal exam: PRESENT: deferred Gentrourinary exam: ABSENT: lesions, scrotal swelling Extremities exam: PRESENT: other - No edema. Vascular surgical scars LLE healed. Neurological exam: PRESENT: alert, moves all fours Skin exam: PRESENT: other - Healing laceration left hand. Healed vasc surgical scars LLE. Results Laboratory Results: 01/05/17 03:48 01/05/17 03:48 01/05/17 01/05/17 01/05/17 03:48 03:48 08:50 WBC 8.3 RBC 3.46 L Hgb 10.4 L Hct 31.1 L MCV 90 MCH 30.2 MCHC 33.5 RDW 16.4 H Plt Count 254 Seg Neutrophils % 66.4 Lymphocytes % 14.4 Monocytes % 11.7 Eosinophils % 6.5 H Basophils % 1.0 Absolute Neutrophils 5.5 Absolute Lymphocytes 1.2 Absolute Monocytes 1.0 Absolute Eosinophils 0.5 Absolute Basophils 0.1 Carbonic Acid 1.16 HCO3/H2CO3 Ratio 23:1 ABG pH 7.46 H ABG pCO2 38.4 ABG pO2 72.7 L ABG HCO3 26.9 H ABG O2 Saturation 95.4 ABG Base Excess 3.0 FiO2 21% Sodium 138.4 Potassium 3.5 L Chloride 103 Carbon Dioxide 28 Anion Gap 7 BUN 7 Creatinine 0.69 Est GFR ( Amer) > 60 Est GFR (Non-Af Amer) > 60 Glucose 106 Calcium 9.3 Phosphorus 4.1 Magnesium 1.6 Impressions: Lung Scan-VQ NM 12/31/16 12:23 IMPRESSION: Ventilation perfusion lung scan showing no evidence for pulmonary embolic disease. Chest X-Ray 01/05/17 06:00 IMPRESSION: IMPROVED AERATION. NO ACUTE RADIOGRAPHIC FINDING IN THE CHEST. Qualifiers PATEINT BEING DISCHARGED WITH ANY OF THE FOLLOWING DIAGNOSIS?: No
[2017-01-05 14:47] VITALS: BP 172/80
[2017-01-05] MEDS ORDERED: CIPROFLOXACIN HCL 750 MG TABLET PO SCH (22:00)
== END 2017-01-05 15:15 | disposition home or self-care (01) | DRG 871 ==
LOC: ER 11:11 → UNDOADMIN 12:29 → EH 12:29 → UNDOADMIN 13:44 → EH 14:55 → ICU 14:55 → 5 01-04 15:17
PROVIDERS: ADMIT Internal Medicine; ATTEND Internal Medicine
PROC: 0BH17EZ Insertion of Endotracheal Airway into Trachea, Via Natural or Artificial Opening (ICD-10-PCS; principal; 2016-12-31)
PROC: 5A1945Z Respiratory Ventilation, 24-96 Consecutive Hours (ICD-10-PCS; 2016-12-31)
DX: A41.9 Sepsis, unspecified organism (principal); J96.01 Acute respiratory failure with hypoxia; J18.9 Pneumonia, unspecified organism; J96.02 Acute respiratory failure with hypercapnia; E87.2 Acidosis; N17.9 Acute kidney failure, unspecified; I73.9 Peripheral vascular disease, unspecified; E87.5 Hyperkalemia; R65.20 Severe sepsis without septic shock; B96.89 Other specified bacterial agents as the cause of diseases classified elsewhere; I25.10 Atherosclerotic heart disease of native coronary artery without angina pectoris; Z86.718 Personal history of other venous thrombosis and embolism; F17.210 Nicotine dependence, cigarettes, uncomplicated; Z82.3 Family history of stroke; Z82.49 Family history of ischemic heart disease and other diseases of the circulatory system; Z79.899 Other long term (current) drug therapy; Z79.82 Long term (current) use of aspirin; Z88.8 Allergy status to other drugs, medicaments and biological substances; Z98.890 Other specified postprocedural states; Z78.1 Physical restraint status; S61.412D Laceration without foreign body of left hand, subsequent encounter; X58.XXXD Exposure to other specified factors, subsequent encounter
CPT/HCPCS: 36415; 36600; 71010; 78582; 80048; 80053; 81001; 82803; 83605; 83735; 84100; 84478; 85025; 85610; 87040; 87070; 87077; 87086; 87186; 87205; 93005; 93010; 94002; 94003; 99291; A9540; A9567; J0330; J0610; J0692; J0696; J1650; J1815; J1956; J2250; J2270; J2704; J3370; J3475; J3490; J7030; J7060; Q9969; S0028

== ENCOUNTER 2018-05-20 09:56 | Day surgery (SDC) | payer MEDICARE, OTHER ==
[~2018-05-20 09:56] MED LIST: CHONDR SU A NA/HYALUR INTRAOC KIT (SURGICARE) ONE; EPINEPHRINE INJ/PF 1 MG/1 ML AMPULE ONE; KETOROLAC TROMETHAMINE 0.45% 4 DROP/0.4 ML DROPERETTE OD PRN; LIDOCAINE 1% INJ-PF (10 MG/ML) 30 ML SDV ONE; TOBRAMYCIN SULFATE/DEXAMETH OPH OINTMENT 3.5 GM ONE
[2018-05-20] MEDS: CYCLOPENTOLATE 0.2%/PHENYLEPHRINE 1% OPH SOLN 2 ML OD PRN ×3 (10:50→11:06)
[2018-05-20] MEDS: BESIFLOXACIN HCL 0.6% OPH SUSP 5 ML BOTTLE OD PRN ×3 (10:50→11:34)
[2018-05-20] MEDS: TROPICAMIDE 1% OPH SOLN 3 ML OD PRN ×3 (10:50→11:06)
[2018-05-20] MEDS: TETRACAINE HCL 0.5% OPH SOLN 0.6 ML DROPERETTE OD PRN ×3 (10:50→11:16)
[2018-05-20] MEDS ORDERED: MIDAZOLAM 2 MG/2 ML INJ ONE (11:02)
[2018-05-20] MEDS ORDERED: LIDOCAINE 1%/PHENYLEPHRINE 1.5% 1 ML VIAL ONE (11:04)
== END 2018-05-20 12:06 | disposition home or self-care (01) ==
LOC: SC 09:56
PROVIDERS: ATTEND Ophthalmology
DX: H25.11 Age-related nuclear cataract, right eye (principal); I10 Essential (primary) hypertension; K21.9 Gastro-esophageal reflux disease without esophagitis; E78.00 Pure hypercholesterolemia, unspecified; J44.9 Chronic obstructive pulmonary disease, unspecified; Z79.01 Long term (current) use of anticoagulants; Z79.899 Other long term (current) drug therapy; Z79.51 Long term (current) use of inhaled steroids; Z87.11 Personal history of peptic ulcer disease
CPT/HCPCS: 66984; V2630; J2250; J3490 ×2; A9270; J0171; J2370; 142

== ENCOUNTER 2018-06-03 06:24 | Day surgery (SDC) | payer MEDICARE, OTHER ==
[~2018-06-03 06:24] MED LIST changes: -CHONDR SU A NA/HYALUR INTRAOC KIT (SURGICARE) ONE; -EPINEPHRINE INJ/PF 1 MG/1 ML AMPULE ONE; -KETOROLAC TROMETHAMINE 0.45% 4 DROP/0.4 ML DROPERETTE OD PRN; +KETOROLAC TROMETHAMINE 0.45% 4 DROP/0.4 ML DROPERETTE OS PRN; -LIDOCAINE 1% INJ-PF (10 MG/ML) 30 ML SDV ONE; -TOBRAMYCIN SULFATE/DEXAMETH OPH OINTMENT 3.5 GM ONE
[2018-06-03] MEDS: CYCLOPENTOLATE 0.2%/PHENYLEPHRINE 1% OPH SOLN 2 ML OS PRN ×3 (06:47→07:16)
[2018-06-03] MEDS: TROPICAMIDE 1% OPH SOLN 3 ML OS PRN ×3 (06:47→07:16)
[2018-06-03] MEDS: BESIFLOXACIN HCL 0.6% OPH SUSP 5 ML BOTTLE OS PRN ×3 (06:48→07:55)
[2018-06-03] MEDS: TETRACAINE HCL 0.5% OPH SOLN 0.6 ML DROPERETTE OS PRN ×3 (06:49→07:39)
[2018-06-03] MEDS ORDERED: FENTANYL CITRATE INJ/PF 100 MCG/2 ML AMPUL ONE (06:51)
[2018-06-03] MEDS ORDERED: MIDAZOLAM 2 MG/2 ML INJ ONE (06:51)
[2018-06-03] MEDS ORDERED: TOBRAMYCIN SULFATE/DEXAMETH OPH OINTMENT 3.5 GM ONE (07:07)
[2018-06-03] MEDS ORDERED: CHONDR SU A NA/HYALUR INTRAOC KIT (SURGICARE) ONE (07:07)
[2018-06-03] MEDS ORDERED: LIDOCAINE 1% INJ-PF (10 MG/ML) 30 ML SDV ONE (07:07)
[2018-06-03] MEDS ORDERED: EPINEPHRINE INJ/PF 1 MG/1 ML AMPULE ONE (07:07)
== END 2018-06-03 08:28 | disposition home or self-care (01) ==
LOC: SC 06:24
PROVIDERS: ATTEND Ophthalmology
DX: H25.12 Age-related nuclear cataract, left eye (principal); Z98.41 Cataract extraction status, right eye; I10 Essential (primary) hypertension; E78.00 Pure hypercholesterolemia, unspecified; K21.9 Gastro-esophageal reflux disease without esophagitis; M19.90 Unspecified osteoarthritis, unspecified site; F17.210 Nicotine dependence, cigarettes, uncomplicated; J44.9 Chronic obstructive pulmonary disease, unspecified; Z79.899 Other long term (current) drug therapy; Z79.01 Long term (current) use of anticoagulants; Z79.51 Long term (current) use of inhaled steroids
CPT/HCPCS: 66984; V2630; J2250; J3490 ×3; A9270; J0171; J3010; 142

== ENCOUNTER → 2019-05-04 | Outpatient (CLI) | payer MEDICARE, OTHER ==
--- NOTE | 2019-05-04 19:35 | RADIOLOGY REPORT (SQ) ---
EXAM DESCRIPTION: CT CHEST WITHOUT COMPLETED DATE/TIME: 05/04/2019 1:18 pm REASON FOR STUDY: COPD (J44.9) Z87.891 PERSONAL HISTORY OF NICOTINE DEPENDENCE J44.9 CHRONIC OBSTR UCTIVE PULMONARY DISEASE, UNSPECIFIED COMPARISON: None. TECHNIQUE: CT scan performed of the chest without intravenous contrast. Images reviewed with lung, soft tissue and bone windows. Reconstructed coronal and sagittal MPR images reviewed. All images st ored on PACS. All CT scanners at this facility use dose modulation, iterative reconstruction, and/or weight based d osing when appropriate to reduce radiation dose to as low as reasonably achievable (ALARA). [facility]: Dose Right [facility]: CareDose [facility]: Dose Right [facility]: Teradose 4D [facility]: [employer] RADIATION DOSE: CT Rad equipment meets quality standard of care and radiation dose reduction techniq ues were employed. CTDIvol: 12.0 mGy. DLP: 477 mGy-cm. mGy. LIMITATIONS: No technical limitations. FINDINGS: LUNGS AND PLEURA: No masses, infiltrates, or pneumothorax. No pleural effusions. Small a reas of bilateral pleural calcifications. HILAR AND MEDIASTINAL STRUCTURES: No identified masses or abnormal nodes. No obvious aneurysm. HEART AND VASCULAR STRUCTURES: No aneurysm. No pericardial effusion. UPPER ABDOMEN: Bilateral adrenal nodularity, incompletely evaluated. . Limited exam. THYROID AND OTHER SOFT TISSUES: No masses. No adenopathy. BONES: No acute finding. Multiple old left rib fractures. HARDWARE: None in the chest. OTHER: No other significant findings. IMPRESSION: No masses, infiltrates, or pneumothorax. No pleural effusions. Small areas of bilatera l pleural calcifications. Bilateral adrenal nodularity, incompletely evaluated. TECHNICAL DOCUMENTATION: JOB ID: [id number] Quality ID # [id number]: Final reports with documentation of one or more dose reduction techniques (e.g., Au tomated exposure control, adjustment of the mA and/or kV according to patient size, use of iterative reconstruction technique) 2010 [employer]- All Rights Reserved Reading location - IP/workstation name: [email or web address]
== END ==
LOC: RAD 13:01
PROVIDERS: ATTEND Internal Medicine Critical Care Medicine
DX: J44.9 Chronic obstructive pulmonary disease, unspecified (principal); R91.1 Solitary pulmonary nodule; I10 Essential (primary) hypertension; C44.41 Basal cell carcinoma of skin of scalp and neck; Z72.0 Tobacco use; I73.9 Peripheral vascular disease, unspecified
CPT/HCPCS: 71250

== ENCOUNTER → 2019-08-13 | Outpatient (CLI) | payer MEDICARE, OTHER ==
--- NOTE | 2019-08-13 10:31 | RADIOLOGY REPORT (SQ) ---
EXAM DESCRIPTION: CT CHEST WITHOUT COMPLETED DATE/TIME: 08/13/2019 9:57 am REASON FOR STUDY: E78.5 HYPERLIPIDEMIA, UNSPECIFIED E78.5 HYPERLIPIDEMIA, UNSPECIFIED K63.5 POLYP OF COLON COMPARISON: 05/04/2019 TECHNIQUE: CT scan performed of the chest without intravenous contrast. Images reviewed with lung, soft tissue and bone windows. Reconstructed coronal and sagittal MPR images reviewed. All images st ored on PACS. All CT scanners at this facility use dose modulation, iterative reconstruction, and/or weight based d osing when appropriate to reduce radiation dose to as low as reasonably achievable (ALARA). [facility]: Dose Right [facility]: CareDose [facility]: Dose Right [facility]: Teradose 4D [facility]: [employer] RADIATION DOSE: CT Rad equipment meets quality standard of care and radiation dose reduction techniq ues were employed. CTDIvol: 12.9 mGy. DLP: 503 mGy-cm. mGy. LIMITATIONS: No technical limitations. FINDINGS: LUNGS AND PLEURA: No focal consolidation. No pleural effusion or pneumothorax. Unchanged mild areas of pleural thickening and calcification most prominent along the right posterior hemithor ax. HILAR AND MEDIASTINAL STRUCTURES: No mediastinal, hilar or axillary adenopathy. HEART AND VASCULAR STRUCTURES: No aneurysm. Scattered coronary atherosclerosis. Normal heart size. No pericardial effusion. UPPER ABDOMEN: Bilateral fat containing adrenal adenomas, largest on the right measuring 17 mm (Houns field units 0). No acute process on the limited evaluation. THYROID AND OTHER SOFT TISSUES: Partially visualized thyroid. No soft tissue masses. BONES: No acute bony abnormality. No suspicious osseous lesions. Multiple left posterior rib fractu res, some of which demonstrate nonunion. HARDWARE: None in the chest. OTHER: No other significant findings. IMPRESSION: 1. No evidence of acute intrathoracic process. 2. Stable mild scattered bilateral pleural plaques, possibly related to prior asbestos exposure. 3. Bilateral adrenal adenomas. TECHNICAL DOCUMENTATION: JOB ID: [id number] Quality ID # [id number]: Final reports with documentation of one or more dose reduction techniques (e.g., Au tomated exposure control, adjustment of the mA and/or kV according to patient size, use of iterative reconstruction technique) 2010 [employer]- All Rights Reserved Reading location - IP/workstation name: [email or web address]
== END ==
LOC: RAD 09:43
PROVIDERS: ATTEND Internal Medicine Critical Care Medicine
DX: E78.5 Hyperlipidemia, unspecified (principal); D35.02 Benign neoplasm of left adrenal gland; D35.01 Benign neoplasm of right adrenal gland; K63.5 Polyp of colon; C44.41 Basal cell carcinoma of skin of scalp and neck
CPT/HCPCS: 71250

== ENCOUNTER 2020-03-31 09:50 | Emergency (ER) | payer MEDICARE, OTHER ==
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
--- NOTE | 2020-03-31 11:44 | RADIOLOGY REPORT (SQ) ---
EXAM DESCRIPTION: CT HEAD WITHOUT IMAGES COMPLETED DATE/TIME: 03/31/2020 11:22 am REASON FOR STUDY: Closed head trauma COMPARISON: 04/10/2011 TECHNIQUE: Axial images acquired through the brain without intravenous contrast. Images reviewed wi th bone, brain and subdural windows. Additional sagittal and coronal reconstructions were generated. Images stored on PACS. All CT scanners at this facility use dose modulation, iterative reconstruction, and/or weight based d osing when appropriate to reduce radiation dose to as low as reasonably achievable (ALARA). [facility]: Dose Right [facility]: CareDose [facility]: Dose Right [facility]: Teradose 4D [facility]: [employer] RADIATION DOSE: CT Rad equipment meets quality standard of care and radiation dose reduction techniq ues were employed. CTDIvol: 53.2 mGy. DLP: 1044 mGy-cm. mGy. LIMITATIONS: None. FINDINGS: VENTRICLES: Normal size and contour. CEREBRUM: Small amount of extra-axial blood products along the right posterior ambient cistern and jiang perior cerebellar hemisphere (series 2, image 14 -16). No significant mass effect or midline shift. No evidence of large vascular territory infarct. Mcdermott-white differentiation is preserved. No discr ete intracranial mass. CEREBELLUM: Small amount of extra-axial blood products along the right superior cerebellar hemisphere . No mass. No alteration of density. No evidence for acute infarction. EXTRAAXIAL SPACES: Age appropriate. Hemorrhage as above. ORBITS AND GLOBE: No intra- or extraconal masses. Normal contour of globe without masses. Bilateral cataract surgery. CALVARIUM: No evidence of acute bony abnormality. Unchanged compression of the outer cortex of the r ight frontal sinus. PARANASAL SINUSES: No fluid or mucosal thickening. SOFT TISSUES: No mass or hematoma. OTHER: No other significant finding. IMPRESSION: 1. Small amount of extra-axial blood products along the right posterior ambient cistern and superior cerebellar hemisphere. No significant mass effect or midline shift. 2. No acute fracture. Findings reported to Dr. Lee at a 1138 hours on 03/31/2020. EVIDENCE OF ACUTE STROKE: Intracranial blood products. No evidence of ischemic stroke. COMMENT: Quality ID # [id number]: Final reports with documentation of one or more dose reduction techniques (e.g., Automated exposure control, adjustment of the mA and/or kV according to patient size, use of iterative reconstruction technique) TECHNICAL DOCUMENTATION: JOB ID: [id number] 2010 [employer]- All Rights Reserved Reading location - IP/workstation name: [email or web address]
[2020-03-31 11:48] LABS: ABSOLUTE BASOPHILS # (AUTO) 0.1 10^3/uL (0.0-0.2); ABSOLUTE EOSINOPHILS # (AUTO) 0.1 10^3/uL (0.0-0.6); ABSOLUTE LYMPHOCYTES (AUTO) 0.9 10^3/uL (0.5-4.7); ABSOLUTE MONOCYTES (AUTO) 0.5 10^3/uL (0.1-1.4); BASOPHILS % (AUTO) 0.7 % (0-2); HEMATOCRIT 37.8 % (37.9-51.0); HEMOGLOBIN 12.5 g/dL (13.5-17.0); LYMPHOCYTES % (AUTO) 10.4 % (13-45); MEAN CORPUSCULAR HEMOGLOBIN 33.5 pg (27.0-33.4); MEAN CORPUSCULAR VOLUME 102 fl (80-97); MONOCYTES % (AUTO) 5.7 % (3-13); PLATELET COUNT 274 10^3/uL (150-450); RED BLOOD COUNT 3.73 10^6/uL (4.35-5.55); RED CELL DISTRIBUTION WIDTH 14.4 % (11.5-14.0); SEGMENTED NEUTROPHILS % (AUTO) 82.2 % (42-78); TOTAL CELLS COUNTED % (AUTO) 100 %; WHITE BLOOD COUNT 8.5 10^3/uL (4.0-10.5)
--- NOTE | 2020-03-31 11:49 | RADIOLOGY REPORT (SQ) ---
EXAM DESCRIPTION: CT CERVICAL SPINE WITHOUT IMAGES COMPLETED DATE/TIME: 03/31/2020 11:22 am REASON FOR STUDY: Fall from truck COMPARISON: None. TECHNIQUE: Axial images acquired through the cervical spine without intravenous contrast. Images re viewed with lung, soft tissue and bone windows. Reconstructed coronal and sagittal MPR images review ed. Images stored on PACS. All CT scanners at this facility use dose modulation, iterative reconstruction, and/or weight based d osing when appropriate to reduce radiation dose to as low as reasonably achievable (ALARA). [facility]: Dose Right [facility]: CareDose [facility]: Dose Right [facility]: Teradose 4D [facility]: [employer] RADIATION DOSE: CT Rad equipment meets quality standard of care and radiation dose reduction techniq ues were employed. CTDIvol: 21.0 mGy. DLP: 469 mGy-cm. mGy. LIMITATIONS: None. FINDINGS: ALIGNMENT: Straightening of the normal cervical lordosis, likely positional. MINERALIZATION: Normal. VERTEBRAL BODIES: No fracture or dislocation. Significant degenerative changes at the atlantoaxial j oint. DISCS: Mild multilevel disc height loss throughout the cervical spine. No significant posterior oste ophytes. FACETS, LATERAL MASSES, POSTERIOR ELEMENTS: No facet fracture dislocation. Mild multilevel facet art hropathy. No high-grade osseous neural foraminal narrowing identified. HARDWARE: None in the spine. VISUALIZED RIBS: No fractures. LUNG APICES AND SOFT TISSUES: No pneumothorax. Scattered paraseptal emphysema. Scattered carotid at herosclerosis. OTHER: No other significant finding. IMPRESSION: 1. No evidence of acute bony abnormality of the cervical spine. 2. Mild degenerative change. TECHNICAL DOCUMENTATION: JOB ID: [id number] Quality ID # [id number]: Final reports with documentation of one or more dose reduction techniques (e.g., Au tomated exposure control, adjustment of the mA and/or kV according to patient size, use of iterative reconstruction technique) 2010 [employer]- All Rights Reserved Reading location - IP/workstation name: [email or web address]
[2020-03-31 11:55] LABS: INTERNATIONAL RATION (INR) 1.48; PROTHROMBIN TIME 18.1 SEC (11.4-15.4)
[2020-03-31 11:56] LABS: PARTIAL THROMBOPLASTIN TIME 38.1 SEC (23.5-35.8)
[2020-03-31 12:14] LABS: ALBUMIN 4.6 g/dL (3.5-5.0); ALKALINE PHOSPHATASE 91 U/L (38-126); ANION GAP 8 (5-19); ASPARTATE AMINO TRANSFERASE 20 U/L (17-59); BILIRUBIN,TOTAL 0.4 mg/dL (0.2-1.3); BLOOD UREA NITROGEN 10 mg/dL (7-20); CALCIUM 9.5 mg/dL (8.4-10.2); CARBON DIOXIDE 29 mmol/L (22-30); CHLORIDE 98 mmol/L (98-107); GLUCOSE 115 mg/dL (75-110); POTASSIUM 4.8 mmol/L (3.6-5.0); TOTAL PROTEIN 7.1 g/dL (6.3-8.2)
[2020-03-31] MEDS ORDERED: DEXTROSE 5%-1/2 NORMAL SALINE 500 ML IV ONE (13:08)
--- NOTE | 2020-03-31 13:32 | RADIOLOGY REPORT (SQ) ---
EXAM DESCRIPTION: CHEST SINGLE VIEW IMAGES COMPLETED DATE/TIME: 03/31/2020 1:22 pm REASON FOR STUDY: trauma COMPARISON: 04/10/2011 EXAM PARAMETERS: NUMBER OF VIEWS: One view. TECHNIQUE: Single frontal radiographic view of the chest acquired. RADIATION DOSE: NA LIMITATIONS: None. FINDINGS: LUNGS AND PLEURA: No opacities, masses or pneumothorax. No pleural effusion. MEDIASTINUM AND HILAR STRUCTURES: No masses. Contour normal. HEART AND VASCULAR STRUCTURES: Heart normal in size. Normal vasculature. BONES: No acute findings. Chronic upper left posterior rib fractures. HARDWARE: None in the chest. OTHER: No other significant finding. IMPRESSION: NO ACUTE RADIOGRAPHIC FINDING IN THE CHEST. TECHNICAL DOCUMENTATION: JOB ID: [id number] 2010 [employer]- All Rights Reserved Reading location - IP/workstation name: [email or web address]
[2020-03-31 13:39] LABS: CREATINE KINASE 142 U/L (55-170)
[2020-03-31 13:40] LABS: ALCOHOL < 10 mg/dL (NONE DETECTED)
[2020-03-31 14:15] LABS: APPEARANCE,URINE CLEAR; BILIRUBIN,URINE NEGATIVE (NEGATIVE); COLOR,URINE STRAW; GLUCOSE, URINE NEGATIVE (NEGATIVE); KETONES,URINE NEGATIVE (NEGATIVE); LEUKOCYTE ESTERASE,URINE NEGATIVE (NEGATIVE); NITRITE,URINE NEGATIVE (NEGATIVE); PROTEIN,URINE NEGATIVE (NEGATIVE); URINE SPECIFIC GRAVITY 1.003; UROBILINOGEN,URINE NEGATIVE mg/dL (<2.0)
[2020-03-31 14:31] LABS: URINE AMPHETAMINES SCREEN NEGATIVE; URINE BARBITURATES SCREEN NEGATIVE; URINE BENZODIAZEPINES SCREEN NEGATIVE; URINE COCAINE SCREEN NEGATIVE; URINE MARIJUANA (THC) SCREEN NEGATIVE; URINE METHADONE SCREEN NEGATIVE; URINE PHENCYCLIDINE SCREEN NEGATIVE
[2020-03-31 15:22] VITALS: BP 161/76
--- NOTE | 2020-03-31 15:30 | ER Document Report ---
Entered by FRANKLYN ATKINS SCRIBE 03/31/20 1210 Acting as scribe for:BRIEN VILLA MD ED Fall - General Chief Complaint: Fall Stated Complaint: FALL/HEAD INJURY, BLURRED VISION Time Seen by Provider: 03/31/20 10:48 Primary Care Provider: CASEY JASSO NP [Primary Care Provider] - Follow up as needed Mode of Arrival: Wheelchair Information source: Patient Notes: This 69-year-old male patient presents to the emergency department today with complaints of double vision. [place] trash and fell backwards out of the back of his truck hitting the back of his head. Patient has a small hematoma to the left posterior head but he did not think anything of it. Patient states yesterday he noticed he was seeing double which is not baseline for him. Patient states he always has "blurry" vision in his le ft eye. Patient has a right frontal headache and nausea today but denies vomiting. TRAVEL OUTSIDE OF THE [place] IN LAST 30 DAYS: No - Related data Allergies/Adverse Reactions: iodine Allergy (Verified 03/31/20 10:39) Home Medications: xarelto. htn Past Medical History - General Information source: Patient - Social History Smoking Status: Current Every Day Smoker Cigarette use (# per day): Yes Frequency of alcohol use: None Drug Abuse: None Lives with: Family Family History: Reviewed & Not Pertinent, CAD, DM, Hypertension Patient has homicidal ideation: No - Past Medical History Cardiac Medical History: Reports: Hx Coronary Artery Disease, Hx Hypertension, Hx Peripheral Vascular Disease Pulmonary Medical History: Reports: Hx COPD GI Medical History: Reports: Hx Ulcer Past Surgical History: Reports: Hx Cardiac Catheterization, Hx Vascular Surgery - Left leg removal of embolism Review of Systems - Review of Systems Constitutional: No symptoms reported EENT: See HPI, Double vision Cardiovascular: No symptoms reported Respiratory: No symptoms reported Gastrointestinal: No symptoms reported Genitourinary: No symptoms reported Male Genitourinary: No symptoms reported Musculoskeletal: No symptoms reported Skin: No symptoms reported Hematologic/Lymphatic: No symptoms reported Neurological/Psychological: See HPI, Headaches -: Yes All other systems reviewed and negative Physical Exam - Vital signs Vitals: Temp Pulse Resp BP Pulse Ox 98.2 F 75 18 153/63 H 97 03/31/20 10:06 03/31/20 10:06 03/31/20 10:06 03/31/20 10:06 03/31/20 10:06 - Notes Notes: Physical Exam: General: Alert, appears well. HEENT: Normocephalic. Hematoma over left posterior head. PERRL. Extraocular movements intact. Oropharynx clear. Neck: Supple. Non-tender. Respiratory: No respiratory distress. Clear and equal breath sounds bilaterally. Cardiovascular: Regular rate and rhythm. Abdominal: Normal Inspection. Non-tender. No distension. Normal Bowel Sounds. Back: No gross abnormalities. Extremities: Moves all four extremities. Upper extremities: Normal inspection. Normal ROM. Lower extremities: Normal inspection. No edema. Normal ROM. Neurological: Normal cognition. AAOx4. Normal speech. Tyywod-zo-gykj test intact bilaterally. Heel willingham test intact bilaterally. Does report that he sees double. Psychological: Normal affect. Normal Mood. Skin: Warm. Dry. Normal color. Course - Re-evaluation Re-evalutation: 03/31/20 15:23 Patient showing no signs of distress at this time. Resting comfortably 03/31/20 15:23 EMS team has arrived to transfer patient to [facility]. - Vital Signs Vital signs: Temp Pulse Resp BP Pulse Ox 98.2 F 75 13 161/76 H 93 03/31/20 15:06 03/31/20 12:45 03/31/20 15:07 03/31/20 15:07 03/31/20 15:07 03/31/20 15:23 Vital signs are stable no acute process. - Laboratory Result Diagrams: 03/31/20 11:15 03/31/20 11:15 Laboratory results interpreted by me: 03/31/20 03/31/20 03/31/20 11:15 11:15 11:15 RBC 3.73 L Hgb 12.5 L Hct 37.8 L MCV 102 H MCH 33.5 H RDW 14.4 H Lymph % (Auto) 10.4 L Seg Neutrophils % 82.2 H PT 18.1 H APTT 38.1 H Sodium 135.1 L Glucose 115 H Urine Blood 03/31/20 13:39 RBC Hgb Hct MCV MCH RDW Lymph % (Auto) Seg Neutrophils % PT APTT Sodium Glucose Urine Blood SMALL H 03/31/20 12:57 Laboratories essentially within normal limits. 03/31/20 15:24 Laboratory results essentially within normal limits no acute process small amount of blood noted in urine - Diagnostic Test Radiology reviewed: Image reviewed, Reports reviewed Radiology results interpreted by me: 03/31/20 12:57 CT of the head shows a small subarachnoid hemorrhage on the right cerebellar superior aspect of the superior cistern. No mass-effect no evidence for stroke and no fractures 03/31/20 12:57 CT scan of cervical spine shows degenerative changes no fractures no acute process. Critical Care Note - Critical Care Note Total time excluding time spent on procedures (mins): 40 - Neuro assessmentComplete physical exam trauma 2 days ago falling striking the back of his head and now with a headache and double vision on the left eye. Patient received IV fluids and CT scan of the head and neck chest x-ray EKG and IV fluids for management. No pain medication was required at this time. In discussion of signs symptoms of patient with the transfer hospital transfer team. Discharge - Discharge Clinical Impression: Subarachnoid hemorrhage following injury Condition: Fair Disposition: [facility] Referrals: CASEY JASSO NP [Primary Care Provider] - Follow up as needed ED NIH Stroke Scale - NIH Stroke Scale *: 1. NIH scale should be completed with appropriate accompanying assessment tools. *: 2. The NIH should reflect what the patient is capable of doing and should not be coached by the clinician. 1a. Level of Consciousness: 0=Alert;keenly responsive -: 1=Drowsy -: 2=Obtunded -: 3=Coma/unresponsive or reflex to noxious stimuli. 1a. Responses: 0 1b. Orientation Questions: a. What month is it? -: b. How old are you? -: 0=Answers both questions correctly. -: 1=Answers one question correctly or patient is intubated or has orotracheal trauma. -: 2=Answers neither question correctly. 1b. Responses: 0 1c. Response to commands: a. Open and close eyes? -: b. Job Analyst and release hand? -: Credit is given despite weakness. Demonstration of task is permitted. Substitute command if hands cannot be used. -: 0=Performs both tasks correctly -: 1=Performs one task correctly -: 2=Performs neither task correctly 1c. Responses: 0 2. Gaze: Establish eye contact and instruct patient to "Follow my finger" -: 0=Normal -: 1=Partial gaze palsy. Gaze is abnormal in one or both eyes, but where forced deviation or total gaze paresis is not present. -: 2=Forced deviation or total gaze paresis. 2. Responses: 0 3. Visual Beckman: Sees fingers in all four quadrants. -: 0=No visual loss. -: 1=Partial hemianopsia. -: 2=Complete hemianopsia. -: 3=Bilateral hemianopsia (including Cortical blindness) 3. Responses: 1 - double vision left eye only. 4. Facial Movement: Instruct patient to: -: a. Show me your teeth -: b. Raise your eyebrows -: c. Close your eyes -: d. Smile -: 0=Normal symmetrical movement -: 1=Minor paralysis (flattened nasolabial fold, asymmetry on smiling). -: 2=Partial paralysis (total or near total paralysis of lower face). -: 3=Complete paralysis of upper and lower face 4. Responses: 0 5. Motor functions (left arm): Alternate sides and extend each arm with palms down (90 degrees if sitting or 45 degrees for supine). -: 0=No drift;limb holds for full 10 seconds. -: 1=Drift; limb holds but drifts down before full 10 seconds, but does not hit bed. -: 2=Some effort against gravity; limb cannot get to or maintain position. -: 3=No effort against gravity; limb falls. -: 4=No movement. -: UN=Amputation, joint fusion, explain in comments. 5. Responses (left arm): 0 - MRI 5. Motor Functions (right arm): Alternate sides and extend each arm with palms down (90 degrees if sitting or 45 degrees for supine). -: 0=No drift;limb holds for full 10 seconds. -: 1=Drift; limb holds but drifts down before full 10 seconds, but does not hit bed. -: 2=Some effort against gravity; limb cannot get to or maintain position. -: 3=No effort against gravity; limb falls. -: 4=No movement. -: UN=Amputation, joint fusion, explain in comments. 6. Motor Functions (left leg): With patient lying supine, alternate sides and extend each leg (30 degrees always while supine). -: 0=No drift, leg holds position for full 5 seconds -: 1=Drift; leg falls before full 5 seconds but does not hit bed. -: 2=Some effort against gravity, leg falls to bed but some effort against gravity. -: 3=No effort against gravity, leg falls to bed immediately. -: 4=No movement. -: UN=Amputation, joint fusion; explain in comments. 6. Responses (left leg): 0 6. Motor Functions (right leg): With patient lying supine, alternate sides and extend each leg (30 degrees always while supine). -: 0=No drift, leg holds position for full 5 seconds -: 1=Drift; leg falls before full 5 seconds but does not hit bed. -: 2=Some effort against gravity, leg falls to bed but some effort against gravity. -: 3=No effort against gravity, leg falls to bed immediately. -: 4=No movement. -: UN=Amputation, joint fusion; explain in comments. 6. Responses (right leg): 0 - Frequent 7. Limb Ataxia: With eyes open instruct patient to: -: a. "Touch your finger to your nose". -: b. "Touch your heel to your willingham" -: 0=Absent -: 1=Present in one limb. -: 2=Present in two limbs. -: UN=Amputation or joint fusion; explain in comments. 7. Responses: 0 - NIH score 8. Sensory: Test sensation using pinprick or noxious stimuli. Test as many body parts as possible. -: 0=Normal;no sensory loss -: 1=Mile to moderate sensory loss (patient feels pin prick but is less sharp on affected side). -: 2=Severe or total sensory loss. 8. Responses: 0 9. Best Language: Instruct patient to: -: a. "Describe what you see in this picture." -: b. "Name the items in this picture." -: c. "Read these sentences." -: 0=No aphasia, normal -: 1=Mild to moderate aphasia. -: 2=Severe aphasia -: 3=Mute, global aphasia, no usable speech or auditory comprehension. 9. Responses: 0 10. Articulation, Dysarthia: Instruct patient to: -: "Read these words" or "Repeat these words" -: 0=Normal -: 1=Mild to moderate; patient may slur some words but can be understood without difficulty. -: 2=Severe; patients speech so slurred as to be unintelligible in the absence of dysphasia. -: UN=Intubated or other physical barrier, explain in comments. 10. Responses: 0 - Patient 11. Extinction or inattention: 0=No abnormality -: 1= Visual, tactile, auditory, spatial, or personal inattention or extinction to bilateral simulation in one or the sensory modalities. -: 2=Profound dalia-inattention or dalia-inattention to more than one modality; does not recognize own hand. Total Score: 1 I personally performed the services described in the documentation, reviewed and edited the documentation which was dictated to the scribe in my presence, and it accurately records my words and actions.
--- NOTE | 2020-04-01 14:04 | EKG REPORT ---
SEVERITY:- NORMAL ECG - SINUS RHYTHM : Confirmed by: Stephanie Martinez 01-Apr-2020 14:03:30
== END 2020-03-31 15:33 | disposition short-term general hospital (02) ==
LOC: ER 09:50
DX: S06.6X9A Traumatic subarachnoid hemorrhage with loss of consciousness of unspecified duration, initial encounter (principal); W17.89XA Other fall from one level to another, initial encounter; Y93.89 Activity, other specified; Y92.89 Other specified places as the place of occurrence of the external cause; M54.2 Cervicalgia; R51 Headache; H53.2 Diplopia; H53.8 Other visual disturbances; H57.11 Ocular pain, right eye; R11.0 Nausea; I25.10 Atherosclerotic heart disease of native coronary artery without angina pectoris; I10 Essential (primary) hypertension; J44.9 Chronic obstructive pulmonary disease, unspecified; F17.210 Nicotine dependence, cigarettes, uncomplicated; I82.402 Acute embolism and thrombosis of unspecified deep veins of left lower extremity; Z79.01 Long term (current) use of anticoagulants; Z79.899 Other long term (current) drug therapy
CPT/HCPCS: 93005; 99285; 96360; 96361; 36415; 80307 ×2; 82550; 85025; 85610; 85730; 80053; 81001; 71045; 70450; 72125; 93010; J7070